=== PATIENT | female | born 1955 | race Caucasian/White ===

== ENCOUNTER 2016-10-13 20:31 | Emergency (ER) | payer MEDICARE, MEDICAID ==
[~2016-10-13] VITALS: Ht 162.6 cm; Wt 113.4 kg
[~2016-10-13 20:31] MED LIST: BENA10TA9 PO; CITA20TA3 PO; GABA-494 PO; LANS30CA63 PO; LEV50T PO; LEVE500T22 PO; LOR05T PO; NOR10T PO; OLAN10TA29 PO; OXC300T PO; OXCA150T3 PO; RIS1T PO; ROSU10TA16 PO
[2016-10-13] MEDS ORDERED: HYDROmorphone HCL 2 MG/ML VL IV ONE (22:00)
[2016-10-13 22:11] LABS: Basophils # (auto) 0.1 uL; Basophils % (auto) 0.8 % (0.0-2.0); CONDITION Y; Eosinophils # (auto) 0.1 uL; Hematocrit 33.5 % (36.0-46.0); Hemoglobin 11.4 g/dL (12.2-16.2); Lymphocytes # (auto) 2.4 uL; Lymphocytes % (auto) 33.7 % (10.0-50.0); Mean Corpuscular Hemoglobin 33.4 pg (28.0-32.0); Mean Corpuscular Hgb Conc. 34.1 g/dL (32.0-36.0); Mean Corpuscular Volume 98.1 fL (80.0-100.0); Mean Platelet Volume 6.1 fL (7.4-10.4); Monocytes # (auto) 0.6 uL; Monocytes % (auto) 7.8 % (0.0-12.0); Neutrophils % (auto) 55.7 % (37.0-80.0); Platelet Count (auto) 179 10^3/uL (140-450); Red Cell Distribution Width 13.1 % (11.6-16.0); White Blood Cell 7.2 10^3/uL (4.4-10.8)
[2016-10-13 22:13] LABS: INR 0.96 (0.9-1.15); Partial Thromboplastin Time 24.4 sec (22.64-33.71); Prothrombin Time 10.5 sec (9.37-12.3)
[2016-10-13] MEDS ORDERED: KETOROLAC TROMETH 30 MG/ML 1ML VIAL IV ONE (22:45)
[2016-10-13] MEDS ORDERED: HYDROcodone-ACET 7.5/325MG TAB PO ONE (22:45)
[2016-10-14 01:17] VITALS: BP 118/62
== END 2016-10-14 02:40 ==
LOC: EDUNIT# 20:31 → EDBD 20:31 → ER 20:36
DX: S32.019A Unspecified fracture of first lumbar vertebra, initial encounter for closed fracture (principal); S80.01XA Contusion of right knee, initial encounter; J45.909 Unspecified asthma, uncomplicated; I10 Essential (primary) hypertension; Z88.6 Allergy status to analgesic agent; Z88.5 Allergy status to narcotic agent; Z88.8 Allergy status to other drugs, medicaments and biological substances; W06.XXXA Fall from bed, initial encounter; Y93.89 Activity, other specified; Y92.89 Other specified places as the place of occurrence of the external cause; Y99.8 Other external cause status; G80.9 Cerebral palsy, unspecified
CPT/HCPCS: 36415; 72100; 73560; 85025; 85610; 85730; 96374; 96375; 99285; J1170; J1885; 93005

== ENCOUNTER 2017-08-22 21:05 | Emergency (ER) | payer MEDICARE, MEDICAID ==
[~2017-08-22] VITALS: Ht 157.5 cm; Wt 90.7 kg
[~2017-08-22 21:05] MED LIST changes: -GABA-494 PO; +GABA100C9 PO; -LANS30CA63 PO; -LOR05T PO; +LORA-654 PO; -NOR10T PO; -OXC300T PO
[2017-08-22 22:05] LABS: Basophils # (auto) 0.1 uL; Basophils % (auto) 1.1 % (0.0-2.0); Eosinophils # (auto) 0.1 uL; Eosinophils % (auto) 1.6 % (0.0-7.0); Hematocrit 34.8 % (36.0-46.0); Hemoglobin 11.8 g/dL (12.2-16.2); Lymphocytes % (auto) 36.8 % (10.0-50.0); Mean Corpuscular Hemoglobin 31.6 pg (28.0-32.0); Monocytes # (auto) 0.4 uL; Monocytes % (auto) 5.2 % (0.0-12.0); Neutrophils # (auto) 4.4 uL; Neutrophils % (auto) 55.3 % (37.0-80.0); Platelet Count (auto) 303 10^3/uL (140-450); Red Blood Cells 3.74 10^6/uL (4.0-5.20); Red Cell Distribution Width 12.9 % (11.8-14.3)
[2017-08-22 22:13] LABS: Alanine Aminotransferase 73 U/L (13-56); Albumin 3.6 g/dL (3.4-5.0); Anion Gap 10 (5-15); Aspartate Aminotransferase 32 U/L (15-37); BUN/Creatinine Ratio 22.1; Blood Urea Nitrogen 15 mg/dL (7-18); Calcium 8.7 mg/dL (8.5-10.1); Carbon Dioxide 25 mmol/L (21-32); Chloride 95 mmol/L (98-107); GFR African American 114 mL/min; GFR Non-African American 94 mL/min; Glucose 120 mg/dL (74-106); Potassium 4.2 mmol/L (3.5-5.1); Sodium 130 mmol/L (136-145)
[2017-08-22 22:18] LABS: Alkaline Phosphatase 107 U/L (45-117); Bilirubin, Total 0.3 mg/dL (0.2-1.0); Total Protein 7.2 g/dL (6.4-8.2)
[2017-08-22] MEDS ORDERED: HYDROcodone-ACET 10/325MG TAB PO ONE (23:15)
[2017-08-22] MEDS ORDERED: LORazepam 2MG/ML-1ML VIAL IM ONE (23:15)
[2017-08-22] MEDS ORDERED: LEVETIRACETAM 500 MG TAB PO ONE (23:15)
[2017-08-23 02:00] VITALS: BP 141/76
== END 2017-08-23 03:24 | disposition home or self-care (01) ==
LOC: EDBD 21:05 → ER 21:09
DX: G40.909 Epilepsy, unspecified, not intractable, without status epilepticus (principal); R42 Dizziness and giddiness; R53.1 Weakness; J45.909 Unspecified asthma, uncomplicated; I10 Essential (primary) hypertension; E07.9 Disorder of thyroid, unspecified; Z90.710 Acquired absence of both cervix and uterus; E66.01 Morbid (severe) obesity due to excess calories; Z68.36 Body mass index [BMI] 36.0-36.9, adult
CPT/HCPCS: 36415; 70450; 71045; 72125; 80053; 84443; 84484; 85025; 93005; 96372; 99285; J2060

== ENCOUNTER 2019-04-09 21:25 | Inpatient (IN) | payer MEDICARE, MEDICAID ==
[~2019-04-09] VITALS: Ht 157.5 cm; Wt 83.9 kg
[~2019-04-09 21:25] MED LIST changes: -LORA-654 PO; +LORA0.5T12 PO
[2019-04-09 22:21] LABS: Basophils # (auto) 0 uL; Basophils % (auto) 0.4 % (0.0-2.0); Eosinophils # (auto) 0.2 uL; Eosinophils % (auto) 2.3 % (0.0-7.0); Hematocrit 36.3 % (36.0-46.0); Hemoglobin 12.6 g/dL (12.2-16.2); Lymphocytes # (auto) 3.6 uL; Lymphocytes % (auto) 37.3 % (10.0-50.0); Mean Corpuscular Hemoglobin 33.3 pg (28.0-32.0); Mean Corpuscular Hgb Conc. 34.8 g/dL (32.0-36.0); Mean Corpuscular Volume 95.9 fL (80.0-100.0); Monocytes # (auto) 0.4 uL; Monocytes % (auto) 3.8 % (0.0-12.0); Neutrophils # (auto) 5.4 uL; Neutrophils % (auto) 56.2 % (37.0-80.0); Platelet Count (auto) 331 10^3/uL (140-450); Red Blood Cells 3.79 10^6/uL (4.0-5.20); Red Cell Distribution Width 12.7 % (11.8-14.3); White Blood Cell 9.7 10^3/uL (4.4-10.8)
[2019-04-09 22:36] LABS: INR 1.05 (0.9-1.15); Partial Thromboplastin Time 27.1 sec (23.64-32.05)
[2019-04-09 22:38] LABS: Albumin 3.8 g/dL (3.4-5.0); Anion Gap 7 (5-15); Blood Urea Nitrogen 13 mg/dL (7-18); Carbon Dioxide 26 mmol/L (21-32); Chloride 103 mmol/L (98-107); Glucose 102 mg/dL (74-106); Magnesium 2.2 mg/dL (1.6-2.6); Potassium 3.9 mmol/L (3.5-5.1); Sodium 136 mmol/L (136-145)
[2019-04-09 22:46] LABS: Alanine Aminotransferase 48 U/L (13-56); Alkaline Phosphatase 129 U/L (45-117); Aspartate Aminotransferase 21 U/L (15-37); BUN/Creatinine Ratio 18.3; Bilirubin, Total 0.4 mg/dL (0.2-1.0); GFR African American 108 mL/min; GFR Non-African American 89 mL/min; Total Protein 7.6 g/dL (6.4-8.2)
[2019-04-10] MEDS ORDERED: MORPHINE SULF INJ 2 MG/ML SYRINGE 1ML IV ONE (01:45)
[2019-04-10] MEDS ORDERED: ONDANSETRON HCL 4 MG/2 ML VIAL IM ONE (01:45)
[2019-04-10] MEDS ORDERED: LORazepam 2MG/ML-1ML VIAL ONE (02:24)
[2019-04-10] MEDS ORDERED: LEVETIRACETAM 500 MG/5ML INJ IV ONE (02:26)
[2019-04-10] MEDS ORDERED: LORazepam 2MG/ML-1ML VIAL IV ONE (02:45)
[2019-04-10] MEDS ORDERED: LEVETIRACETAM INJ 1,000 MG in D5W 5% 100 ML IV ONE (02:45)
[2019-04-10] MEDS ORDERED: TEMAZEPAM 15 MG CAP PO PRN (05:30)
[2019-04-10] MEDS ORDERED: ONDANSETRON HCL 4 MG/2 ML VIAL IV PRN (05:30)
[2019-04-10] MEDS ORDERED: OXcarbazepine 300 MG TAB PO SCH (06:00)
[2019-04-10] MEDS: LEVOTHYROXINE SODIUM 25 MCG TAB PO SCH (08:16)
[2019-04-10] MEDS ORDERED: MORP15TA PO (09:52)
[2019-04-10] MEDS ORDERED: FURO1TAB33 PO (09:52)
[2019-04-10 09:58] VITALS: BP 136/68
[2019-04-10] MEDS ORDERED: LEVETIRACETAM 500 MG TAB PO SCH (10:00)
[2019-04-10] MEDS: FAMOTIDINE 20 MG TAB PO SCH ×2 (10:29→21:55)
[2019-04-10] MEDS: GABAPENTIN 100 MG CAP PO SCH ×2 (10:29→21:55)
[2019-04-10] MEDS: risperiDONE 1 MG TAB PO SCH (10:29)
[2019-04-10] MEDS: ACETAMINOPHEN 325 MG TAB PO PRN (10:31)
[2019-04-10] MEDS: LEVETIRACETAM 500 MG TAB PO SCH ×2 (10:45→21:54)
[2019-04-10] MEDS ORDERED: MORPHINE SULF INJ 2 MG/ML SYRINGE 1ML IV PRN (11:30)
[2019-04-10 17:00] VITALS: BP 104/66
[2019-04-10 20:00] VITALS: BP 119/65
[2019-04-10 22:00] VITALS: BP 119/65
[2019-04-10] MEDS: MORPHINE SULF INJ 2 MG/ML SYRINGE 1ML IV PRN (22:13)
[2019-04-11 05:00] VITALS: BP 132/74
[2019-04-11] MEDS: LEVOTHYROXINE SODIUM 25 MCG TAB PO SCH (06:30)
[2019-04-11 07:42] LABS: Anion Gap 6 (5-15); BUN/Creatinine Ratio 21.4; Blood Urea Nitrogen 15 mg/dL (7-18); Calcium 8.2 mg/dL (8.5-10.1); Carbon Dioxide 25 mmol/L (21-32); Chloride 105 mmol/L (98-107); GFR African American 109 mL/min; GFR Non-African American 90 mL/min; Glucose 109 mg/dL (74-106); Potassium 4.1 mmol/L (3.5-5.1); Sodium 136 mmol/L (136-145)
[2019-04-11 08:00] VITALS: BP 115/62
[2019-04-11] MEDS: MORPHINE SULF INJ 2 MG/ML SYRINGE 1ML IV PRN ×4 (08:42→23:28)
[2019-04-11] MEDS: LEVETIRACETAM 500 MG TAB PO SCH ×2 (10:53→21:31)
[2019-04-11] MEDS: FAMOTIDINE 20 MG TAB PO SCH ×2 (10:53→21:32)
[2019-04-11] MEDS: GABAPENTIN 100 MG CAP PO SCH ×2 (10:53→21:31)
[2019-04-11] MEDS: risperiDONE 1 MG TAB PO SCH (10:53)
[2019-04-11 12:00] VITALS: BP 101/62
[2019-04-11 16:33] LABS: % Iron Saturation 30.2 % (15-50)
[2019-04-11 17:00] VITALS: BP 111/70
[2019-04-11] MEDS: PRAMIPEXOLE DIHYDROCHLORIDE MO 0.25 MG TAB PO SCH (21:31)
[2019-04-11 22:00] VITALS: BP 97/44
[2019-04-11 23:14] VITALS: BP 127/72
[2019-04-12] MEDS: MORPHINE SULF INJ 2 MG/ML SYRINGE 1ML IV PRN ×5 (03:38→23:25)
[2019-04-12 04:26] VITALS: BP 138/78
[2019-04-12] MEDS: LEVOTHYROXINE SODIUM 25 MCG TAB PO SCH (06:20)
[2019-04-12 06:38] LABS: Basophils # (auto) 0 uL; Basophils % (auto) 0.5 % (0.0-2.0); Eosinophils # (auto) 0.2 uL; Eosinophils % (auto) 2.3 % (0.0-7.0); Hemoglobin 12.7 g/dL (12.2-16.2); Lymphocytes # (auto) 2.2 uL; Lymphocytes % (auto) 32.1 % (10.0-50.0); Mean Corpuscular Hemoglobin 33.1 pg (28.0-32.0); Mean Corpuscular Hgb Conc. 33.5 g/dL (32.0-36.0); Mean Corpuscular Volume 98.7 fL (80.0-100.0); Monocytes # (auto) 0.3 uL; Monocytes % (auto) 4.2 % (0.0-12.0); Neutrophils # (auto) 4.2 uL; Neutrophils % (auto) 60.9 % (37.0-80.0); Platelet Count (auto) 251 10^3/uL (140-450); Red Blood Cells 3.85 10^6/uL (4.0-5.20); Red Cell Distribution Width 12.5 % (11.8-14.3); White Blood Cell 6.8 10^3/uL (4.4-10.8)
[2019-04-12 06:54] LABS: Partial Thromboplastin Time 23.7 sec (23.64-32.05)
[2019-04-12 07:00] LABS: Albumin 3.3 g/dL (3.4-5.0); BUN/Creatinine Ratio 23.1; Bilirubin, Total 0.3 mg/dL (0.2-1.0); Calcium 8.6 mg/dL (8.5-10.1); Total Protein 7.1 g/dL (6.4-8.2)
[2019-04-12 09:00] VITALS: BP 99/56
[2019-04-12] MEDS: ENOXAPARIN SOD 40 MG/0.4 ML SYRINGE SC SCH (09:35)
[2019-04-12] MEDS: GABAPENTIN 100 MG CAP PO SCH ×2 (09:36→22:16)
[2019-04-12] MEDS: risperiDONE 1 MG TAB PO SCH (09:36)
[2019-04-12] MEDS: FAMOTIDINE 20 MG TAB PO SCH ×2 (09:36→22:17)
[2019-04-12] MEDS: LEVETIRACETAM 500 MG TAB PO SCH ×2 (09:36→22:16)
[2019-04-12 13:00] VITALS: BP 107/53
[2019-04-12 17:00] VITALS: BP 120/65
[2019-04-12 22:00] VITALS: BP 126/70
[2019-04-12] MEDS: PRAMIPEXOLE DIHYDROCHLORIDE MO 0.25 MG TAB PO SCH (22:16)
[2019-04-13] MEDS: MORPHINE SULF INJ 2 MG/ML SYRINGE 1ML IV PRN ×3 (04:15→13:17)
[2019-04-13 05:00] VITALS: BP 106/59
[2019-04-13 05:46] LABS: Basophils # (auto) 0 uL; Basophils % (auto) 0.6 % (0.0-2.0); Eosinophils # (auto) 0.2 uL; Eosinophils % (auto) 2.4 % (0.0-7.0); Hematocrit 36.5 % (36.0-46.0); Hemoglobin 12.1 g/dL (12.2-16.2); Lymphocytes # (auto) 2.6 uL; Lymphocytes % (auto) 34.5 % (10.0-50.0); Mean Corpuscular Hemoglobin 32.5 pg (28.0-32.0); Mean Corpuscular Hgb Conc. 33.3 g/dL (32.0-36.0); Mean Corpuscular Volume 97.6 fL (80.0-100.0); Monocytes # (auto) 0.3 uL; Monocytes % (auto) 4.3 % (0.0-12.0); Neutrophils # (auto) 4.4 uL; Neutrophils % (auto) 58.2 % (37.0-80.0); Platelet Count (auto) 266 10^3/uL (140-450); Red Blood Cells 3.74 10^6/uL (4.0-5.20); Red Cell Distribution Width 12.5 % (11.8-14.3); White Blood Cell 7.6 10^3/uL (4.4-10.8)
[2019-04-13 06:18] LABS: Potassium 3.8 mmol/L (3.5-5.1)
[2019-04-13 06:25] LABS: Albumin 3.2 g/dL (3.4-5.0); BUN/Creatinine Ratio 17.6; Bilirubin, Total 0.3 mg/dL (0.2-1.0); Calcium 8.8 mg/dL (8.5-10.1); Magnesium 2.4 mg/dL (1.6-2.6); Total Protein 6.8 g/dL (6.4-8.2)
[2019-04-13] MEDS: LEVOTHYROXINE SODIUM 25 MCG TAB PO SCH (06:37)
[2019-04-13 09:00] VITALS: BP 127/70
[2019-04-13] MEDS: ENOXAPARIN SOD 40 MG/0.4 ML SYRINGE SC SCH (09:03)
[2019-04-13] MEDS: FAMOTIDINE 20 MG TAB PO SCH (09:04)
[2019-04-13] MEDS: risperiDONE 1 MG TAB PO SCH (09:04)
[2019-04-13] MEDS: GABAPENTIN 100 MG CAP PO SCH (09:04)
[2019-04-13] MEDS: LEVETIRACETAM 500 MG TAB PO SCH (09:04)
[2019-04-13] MEDS ORDERED: LEVE500T22 PO (11:16)
[2019-04-13] MEDS ORDERED: PRA25T PO (11:16)
[2019-04-13] MEDS: ACETAMINOPHEN 325 MG TAB PO PRN (11:59)
[2019-04-13 13:00] VITALS: BP 107/61
[2019-04-13 14:21] VITALS: BP 107/61
== END 2019-04-13 15:20 | DRG 101 ==
LOC: EDBD 21:25 → EDSEX 21:25 → ER 21:27 → OVERFLOW 21:28 → WEST WING 04-10 09:20
PROVIDERS: ADMIT Nurse Practitioner; ATTEND Internal Medicine Nephrology
DX: G40.409 Other generalized epilepsy and epileptic syndromes, not intractable, without status epilepticus (principal); G31.9 Degenerative disease of nervous system, unspecified; F41.9 Anxiety disorder, unspecified; E66.9 Obesity, unspecified; I10 Essential (primary) hypertension; Z66 Do not resuscitate; G89.29 Other chronic pain; E03.9 Hypothyroidism, unspecified; E78.5 Hyperlipidemia, unspecified; G25.81 Restless legs syndrome; G47.00 Insomnia, unspecified; G80.9 Cerebral palsy, unspecified; J45.909 Unspecified asthma, uncomplicated; K21.9 Gastro-esophageal reflux disease without esophagitis; E83.51 Hypocalcemia; M54.5 Low back pain; Z51.5 Encounter for palliative care; M54.9 Dorsalgia, unspecified; Z79.899 Other long term (current) drug therapy; Z82.49 Family history of ischemic heart disease and other diseases of the circulatory system; Z90.710 Acquired absence of both cervix and uterus; Z68.33 Body mass index [BMI] 33.0-33.9, adult; Z88.8 Allergy status to other drugs, medicaments and biological substances; Z88.6 Allergy status to analgesic agent; Z91.041 Radiographic dye allergy status
CPT/HCPCS: 36415; 70450; 71045; 80048; 80053; 82550; 82728; 83540; 83550; 83735; 84100; 84146; 84484; 85025; 85610; 85730; 87081; 93005; 96365; 96372; 96375; 97163; G0378; J2405; J7060

== ENCOUNTER 2021-07-20 20:42 | Inpatient (IN) | payer MEDICARE, MEDICAID ==
[~2021-07-20] VITALS: Ht 157.5 cm; Wt 96.3 kg
[~2021-07-20 20:42] MED LIST changes: +BENA10TA15 PO; -BENA10TA9 PO; +FURO1TAB33 PO; -GABA100C9 PO; -LEVE500T22 PO; +LEVE500T32 PO; -LORA0.5T12 PO; +MORP15TA PO; -OLAN10TA29 PO; +OLAN1TAB19 PO; +PRAM0.252 PO
[2021-07-20] MEDS ORDERED: MORPHINE SULFATE 4 MG/ML SYR/VIAL IV ONE (22:00)
[2021-07-20 22:26] LABS: Albumin 3.8 g/dL (3.4-5.0); Calcium 9.4 mg/dL (8.5-10.1); Potassium 4.2 mmol/L (3.5-5.1)
[2021-07-20 22:29] LABS: BUN/Creatinine Ratio 19.7; Bilirubin, Total 0.3 mg/dL (0.2-1.0); Total Protein 7.9 g/dL (6.4-8.2)
[2021-07-20] MEDS ORDERED: LORazepam 2MG/ML-1ML VIAL ONE (23:26)
[2021-07-20] MEDS ORDERED: LORazepam 2MG/ML-1ML VIAL IV ONE (23:35)
[2021-07-20 23:55] LABS: Mean Corpuscular Hemoglobin 32.6 pg (28.0-32.0); Mean Corpuscular Hgb Conc. 34.7 g/dL (32.0-36.0)
[2021-07-20 23:58] LABS: Basophils # (auto) 0.1 10 ^3/uL (0-0.2); Basophils % (auto) 0.9 % (0.0-2.0); Eosinophils # (auto) 0.3 10 ^3/uL (0-0.8); Eosinophils % (auto) 3.9 % (0.0-7.0); Hematocrit 36.6 % (36.0-46.0); Hemoglobin 12.7 g/dL (12.2-16.2); Lymphocytes % (auto) 35.4 % (10.0-50.0); Monocytes # (auto) 0.4 10 ^3/uL (0-1.3); Monocytes % (auto) 5.3 % (0.0-12.0); Neutrophils # (auto) 4.6 10 ^3/uL (1.6-8.6); Neutrophils % (auto) 54.5 % (37.0-80.0); Nucleated Red Blood Cells % 0.2 %; Red Blood Cells 3.89 10^6/uL (4.0-5.20); Red Cell Distribution Width 12.5 % (11.8-14.3); White Blood Cell 8.4 10^3/uL (4.4-10.8)
[2021-07-21] MEDS ORDERED: ACETAMINOPHEN 325 MG TAB PO PRN ×2
[2021-07-21] MEDS ORDERED: ONDANSETRON HCL 4 MG/2 ML VIAL IV PRN
[2021-07-21] MEDS ORDERED: TEMAZEPAM 15 MG CAP PO PRN
[2021-07-21] MEDS ORDERED: NITROGLYCERIN 0.4 MG SL TAB SL PRN
[2021-07-21] MEDS ORDERED: MORPHINE SULFATE INJ 2 MG/ml SYRG IV PRN
[2021-07-21] MEDS ORDERED: DOCUSATE SOD 100 MG CAP PO PRN
[2021-07-21] MEDS: SODIUM CHLORIDE 0.9% 1,000 ML IV SCH ×3 (00:28→16:40)
[2021-07-21] MEDS ORDERED: levETIRAcetam 500 MG/5ML INJ IV ONE (00:53)
[2021-07-21 07:05] LABS: Basophils # (auto) 0 10 ^3/uL (0-0.2); Basophils % (auto) 0.8 % (0.0-2.0); Eosinophils # (auto) 0.3 10 ^3/uL (0-0.8); Eosinophils % (auto) 3.9 % (0.0-7.0); Hemoglobin 12.5 g/dL (12.2-16.2); Lymphocytes # (auto) 2.3 10 ^3/uL (0.4-5.4); Lymphocytes % (auto) 35.8 % (10.0-50.0); Mean Corpuscular Hemoglobin 33.4 pg (28.0-32.0); Mean Corpuscular Hgb Conc. 34.8 g/dL (32.0-36.0); Mean Corpuscular Volume 96.2 fL (80.0-100.0); Monocytes # (auto) 0.3 10 ^3/uL (0-1.3); Neutrophils # (auto) 3.5 10 ^3/uL (1.6-8.6); Neutrophils % (auto) 54.5 % (37.0-80.0); Nucleated Red Blood Cells % 0.1 %; Red Blood Cells 3.74 10^6/uL (4.0-5.20); Red Cell Distribution Width 12.8 % (11.8-14.3); White Blood Cell 6.5 10^3/uL (4.4-10.8)
[2021-07-21] MEDS: MORPHINE SULFATE INJ 2 MG/ml SYRG IV PRN ×4 (07:07→22:07)
[2021-07-21 07:21] LABS: Albumin 3.5 g/dL (3.4-5.0); Calcium 8.6 mg/dL (8.5-10.1); Potassium 3.8 mmol/L (3.5-5.1)
[2021-07-21 07:25] LABS: Bilirubin, Total 0.4 mg/dL (0.2-1.0); Total Protein 7.1 g/dL (6.4-8.2)
[2021-07-21 09:00] VITALS: BP 135/60
[2021-07-21] MEDS: ZINC SULFATE 220mg CAP or TAB PO SCH (10:50)
[2021-07-21] MEDS: MULTIPLE VITAMIN TAB PO SCH (10:50)
[2021-07-21] MEDS: ASCORBIC ACID 500 MG TAB PO SCH ×3 (10:51→21:46)
[2021-07-21] MEDS ORDERED: ARIP2TAB PO (12:00)
[2021-07-21] MEDS ORDERED: ASCO500T11 PO (12:00)
[2021-07-21] MEDS ORDERED: FER325T PO (12:00)
[2021-07-21] MEDS ORDERED: METF-370 PO (12:00)
[2021-07-21] MEDS ORDERED: AML5T PO (12:00)
[2021-07-21] MEDS ORDERED: MIRA25TA PO (12:00)
[2021-07-21] MEDS ORDERED: CHOL100079 PO (12:00)
[2021-07-21] MEDS ORDERED: POTA-180 PO (12:00)
[2021-07-21] MEDS ORDERED: ISOS1TAB28 PO (12:00)
[2021-07-21] MEDS ORDERED: LACO100T PO (12:00)
[2021-07-21] MEDS ORDERED: PANT40TA2 PO (12:00)
[2021-07-21] MEDS: ENOXAPARIN SOD 40 MG/0.4 ML SYRINGE SC SCH (14:45)
[2021-07-21] MEDS: LORazepam 2MG/ML-1ML VIAL IV PRN (16:03)
[2021-07-21 16:34] VITALS: BP 124/58
[2021-07-21] MEDS: FERROUS SULFATE 325mg EC TAB PO SCH (21:44)
[2021-07-21] MEDS: PRAMIPEXOLE DIHYDROCHLORIDE MO 0.25 MG TAB PO SCH (21:44)
[2021-07-21] MEDS: risperiDONE 1 MG TAB PO SCH (21:45)
[2021-07-21 22:00] VITALS: BP 134/69
[2021-07-22] MEDS: SODIUM CHLORIDE 0.9% 1,000 ML IV SCH ×4 (01:02→17:40)
[2021-07-22] MEDS: MORPHINE SULFATE INJ 2 MG/ml SYRG IV PRN ×4 (04:06→22:09)
[2021-07-22 05:00] VITALS: BP 156/77
[2021-07-22] MEDS: LEVOTHYROXINE SODIUM 50 MCG TAB PO SCH (07:42)
[2021-07-22] MEDS: ASCORBIC ACID 500 MG TAB PO SCH ×4 (10:00→21:51)
[2021-07-22] MEDS: FERROUS SULFATE 325mg EC TAB PO SCH ×2 (10:12→21:51)
[2021-07-22] MEDS: ZINC SULFATE 220mg CAP or TAB PO SCH (10:13)
[2021-07-22] MEDS: MULTIPLE VITAMIN TAB PO SCH (10:13)
[2021-07-22] MEDS: CITALOPRAM HYDROBR 20 MG TAB PO SCH (10:14)
[2021-07-22] MEDS: FUROSEMIDE 20 MG TAB PO SCH (10:14)
[2021-07-22] MEDS: BENAZEPRIL HCL 10 MG TAB PO SCH (10:15)
[2021-07-22] MEDS: risperiDONE 1 MG TAB PO SCH ×2 (10:16→21:51)
[2021-07-22] MEDS: PANTOPRAZOLE 40 MG TAB PO SCH (10:16)
[2021-07-22] MEDS: amLODIPine BESYLATE 5 MG TAB PO SCH (10:16)
[2021-07-22] MEDS: ENOXAPARIN SOD 40 MG/0.4 ML SYRINGE SC SCH (10:17)
[2021-07-22 12:30] VITALS: BP 137/66
[2021-07-22 12:54] LABS: Urine Bacteria FEW /hpf (None Seen); Urine Blood Negative /uL (Negative); Urine Specific Gravity 1.009 (1.001-1.035); Urine WBC 1 /hpf (0 - 5)
[2021-07-22 14:00] VITALS: BP 111/52
[2021-07-22] MEDS: LORazepam 2MG/ML-1ML VIAL IV PRN (17:22)
[2021-07-22] MEDS ORDERED: LORazepam 2MG/ML-1ML VIAL IV PRN (21:15)
[2021-07-22] MEDS: PRAMIPEXOLE DIHYDROCHLORIDE MO 0.25 MG TAB PO SCH (21:51)
[2021-07-22 22:00] VITALS: BP 132/55
[2021-07-23] MEDS: MORPHINE SULFATE INJ 2 MG/ml SYRG IV PRN ×4 (02:50→21:52)
[2021-07-23 05:03] VITALS: BP 111/50
[2021-07-23] MEDS: LEVOTHYROXINE SODIUM 50 MCG TAB PO SCH (06:28)
[2021-07-23] MEDS: ENOXAPARIN SOD 40 MG/0.4 ML SYRINGE SC SCH (08:38)
[2021-07-23] MEDS: FERROUS SULFATE 325mg EC TAB PO SCH ×2 (08:38→21:50)
[2021-07-23] MEDS: MULTIPLE VITAMIN TAB PO SCH (08:39)
[2021-07-23] MEDS: PANTOPRAZOLE 40 MG TAB PO SCH (08:39)
[2021-07-23] MEDS: BENAZEPRIL HCL 10 MG TAB PO SCH (08:39)
[2021-07-23] MEDS: CITALOPRAM HYDROBR 20 MG TAB PO SCH (08:39)
[2021-07-23] MEDS: ASCORBIC ACID 500 MG TAB PO SCH ×2 (08:39→21:51)
[2021-07-23] MEDS: risperiDONE 1 MG TAB PO SCH ×2 (08:40→21:51)
[2021-07-23] MEDS: amLODIPine BESYLATE 5 MG TAB PO SCH (08:45)
[2021-07-23] MEDS: FUROSEMIDE 20 MG TAB PO SCH (10:06)
[2021-07-23] MEDS: ZINC SULFATE 220mg CAP or TAB PO SCH (10:06)
[2021-07-23] MEDS: SODIUM CHLORIDE 0.9% 1,000 ML IV SCH (17:38)
[2021-07-23 21:51] VITALS: BP 129/60
[2021-07-23] MEDS: PRAMIPEXOLE DIHYDROCHLORIDE MO 0.25 MG TAB PO SCH (21:51)
[2021-07-24] MEDS: SODIUM CHLORIDE 0.9% 1,000 ML IV SCH ×3 (03:00→21:44)
[2021-07-24] MEDS: MORPHINE SULFATE INJ 2 MG/ml SYRG IV PRN ×3 (04:38→20:19)
[2021-07-24 04:44] VITALS: BP 130/70
[2021-07-24] MEDS: LEVOTHYROXINE SODIUM 50 MCG TAB PO SCH (06:18)
[2021-07-24 08:00] VITALS: BP 130/64
[2021-07-24] MEDS: ASCORBIC ACID 500 MG TAB PO SCH ×2 (10:19→23:13)
[2021-07-24] MEDS: ZINC SULFATE 220mg CAP or TAB PO SCH (10:23)
[2021-07-24] MEDS: CITALOPRAM HYDROBR 20 MG TAB PO SCH (10:23)
[2021-07-24] MEDS: FERROUS SULFATE 325mg EC TAB PO SCH ×2 (10:23→21:45)
[2021-07-24] MEDS: FUROSEMIDE 20 MG TAB PO SCH (10:23)
[2021-07-24] MEDS: MULTIPLE VITAMIN TAB PO SCH (10:24)
[2021-07-24] MEDS: amLODIPine BESYLATE 5 MG TAB PO SCH (10:24)
[2021-07-24] MEDS: risperiDONE 1 MG TAB PO SCH ×2 (10:24→21:45)
[2021-07-24] MEDS: PANTOPRAZOLE 40 MG TAB PO SCH (10:24)
[2021-07-24] MEDS: BENAZEPRIL HCL 10 MG TAB PO SCH (10:25)
[2021-07-24] MEDS: ENOXAPARIN SOD 40 MG/0.4 ML SYRINGE SC SCH (10:25)
[2021-07-24 13:00] VITALS: BP 122/67
[2021-07-24 17:38] VITALS: BP 104/61
[2021-07-24] MEDS: PRAMIPEXOLE DIHYDROCHLORIDE MO 0.25 MG TAB PO SCH (21:45)
[2021-07-24 22:00] VITALS: BP 124/68
[2021-07-25 05:00] VITALS: BP 118/74
[2021-07-25] MEDS: SODIUM CHLORIDE 0.9% 1,000 ML IV SCH ×3 (05:03→20:26)
[2021-07-25] MEDS: MORPHINE SULFATE INJ 2 MG/ml SYRG IV PRN ×4 (05:27→20:27)
[2021-07-25] MEDS: LEVOTHYROXINE SODIUM 50 MCG TAB PO SCH (06:22)
[2021-07-25] MEDS: CITALOPRAM HYDROBR 20 MG TAB PO SCH (09:49)
[2021-07-25] MEDS: ZINC SULFATE 220mg CAP or TAB PO SCH (09:49)
[2021-07-25] MEDS: FERROUS SULFATE 325mg EC TAB PO SCH ×2 (09:49→22:18)
[2021-07-25] MEDS: BENAZEPRIL HCL 10 MG TAB PO SCH (09:51)
[2021-07-25] MEDS: MULTIPLE VITAMIN TAB PO SCH (09:51)
[2021-07-25] MEDS: FUROSEMIDE 20 MG TAB PO SCH (09:51)
[2021-07-25] MEDS: amLODIPine BESYLATE 5 MG TAB PO SCH (09:52)
[2021-07-25] MEDS: ASCORBIC ACID 500 MG TAB PO SCH ×2 (09:52→22:18)
[2021-07-25] MEDS: ENOXAPARIN SOD 40 MG/0.4 ML SYRINGE SC SCH (09:52)
[2021-07-25] MEDS: risperiDONE 1 MG TAB PO SCH ×2 (09:52→22:18)
[2021-07-25] MEDS: PANTOPRAZOLE 40 MG TAB PO SCH (09:52)
[2021-07-25 13:00] VITALS: BP 123/63
[2021-07-25] MEDS: PRAMIPEXOLE DIHYDROCHLORIDE MO 0.25 MG TAB PO SCH (22:18)
[2021-07-25 23:11] VITALS: BP 134/69
[2021-07-26 04:59] VITALS: BP 129/68
[2021-07-26] MEDS: LEVOTHYROXINE SODIUM 50 MCG TAB PO SCH (06:42)
[2021-07-26 09:08] VITALS: BP 118/66
[2021-07-26] MEDS: amLODIPine BESYLATE 5 MG TAB PO SCH (09:09)
[2021-07-26] MEDS: ZINC SULFATE 220mg CAP or TAB PO SCH (09:10)
[2021-07-26] MEDS: BENAZEPRIL HCL 10 MG TAB PO SCH (09:10)
[2021-07-26] MEDS: ASCORBIC ACID 500 MG TAB PO SCH (09:10)
[2021-07-26] MEDS: MULTIPLE VITAMIN TAB PO SCH (09:10)
[2021-07-26] MEDS: FUROSEMIDE 20 MG TAB PO SCH (09:11)
[2021-07-26] MEDS: FERROUS SULFATE 325mg EC TAB PO SCH (09:11)
[2021-07-26] MEDS: CITALOPRAM HYDROBR 20 MG TAB PO SCH (09:11)
[2021-07-26] MEDS: ENOXAPARIN SOD 40 MG/0.4 ML SYRINGE SC SCH (09:12)
[2021-07-26] MEDS: risperiDONE 1 MG TAB PO SCH (09:12)
[2021-07-26] MEDS: PANTOPRAZOLE 40 MG TAB PO SCH (09:12)
[2021-07-26 13:00] VITALS: BP 117/58
[2021-07-26 13:53] VITALS: BP 118/66
== END 2021-07-26 16:48 | DRG 101 ==
LOC: ER 20:42 → EDBD 20:42 → TELE 23:55 → TELE-WESTW 07-21 08:23
PROVIDERS: ADMIT Internal Medicine; ATTEND Internal Medicine
PROC: 05HC33Z Insertion of Infusion Device into Left Basilic Vein, Percutaneous Approach (ICD-10-PCS; principal; 2021-07-24)
PROC: B54NZZA Ultrasonography of Left Upper Extremity Veins, Guidance (ICD-10-PCS; 2021-07-24)
DX: G40.409 Other generalized epilepsy and epileptic syndromes, not intractable, without status epilepticus (principal); E61.1 Iron deficiency; G80.9 Cerebral palsy, unspecified; J45.909 Unspecified asthma, uncomplicated; G25.81 Restless legs syndrome; E66.9 Obesity, unspecified; E78.5 Hyperlipidemia, unspecified; G47.00 Insomnia, unspecified; I10 Essential (primary) hypertension; F41.9 Anxiety disorder, unspecified; Z66 Do not resuscitate; K21.9 Gastro-esophageal reflux disease without esophagitis; R41.3 Other amnesia; Z20.822 Contact with and (suspected) exposure to COVID-19; E03.9 Hypothyroidism, unspecified; Z82.49 Family history of ischemic heart disease and other diseases of the circulatory system; Z88.5 Allergy status to narcotic agent; Z88.8 Allergy status to other drugs, medicaments and biological substances; Z88.6 Allergy status to analgesic agent; Z91.041 Radiographic dye allergy status; Z90.710 Acquired absence of both cervix and uterus; Z79.899 Other long term (current) drug therapy
CPT/HCPCS: 36415; 70450; 70551; 80053; 81001; 82962; 85025; 93005; 95819; 96365; 96375; 97163; G0378; J2405; J7060

== ENCOUNTER 2022-01-27 16:18 | Inpatient (IN) | payer MEDICARE, MEDICAID ==
[~2022-01-27] VITALS: Ht 154.9 cm; Wt 84.5 kg
[~2022-01-27 16:18] MED LIST changes: +AML5T PO; +ARIP2TAB PO; +ASCO500T11 PO; +CHOL100079 PO; +FER325T PO; +ISOS1TAB28 PO; +LACO100T PO; +METF-370 PO; +MIRA25TA PO; +PANT40TA2 PO; +POTA-180 PO
[2022-01-27] MEDS ORDERED: LORazepam 2MG/ML-1ML VIAL ONE (16:25)
[2022-01-27] MEDS ORDERED: LORazepam 2MG/ML-1ML VIAL IM ONE (16:30)
[2022-01-27] MEDS ORDERED: LIDOCAINE 1%HCL (LOCAL ANESTH) 10 ML MDV ONE (19:34)
[2022-01-27] MEDS ORDERED: LIDOCAINE 1% HCL (LOCAL ANESTH.) INJ 20ML MDV ID ONE (19:45)
[2022-01-27] MEDS ORDERED: HYDROmorphone HCL 2 MG/ML VL/or syr IV ONE (21:15)
[2022-01-27] MEDS ORDERED: LIDOCAINE VISCOUS 2% 15ML UD MT ONE (22:00)
[2022-01-28] MEDS ORDERED: LORazepam 2MG/ML-1ML VIAL IV ONE
[2022-01-28 00:07] LABS: Albumin 3.4 g/dL (3.4-5.0); Calcium 8.7 mg/dL (8.5-10.1); Potassium 3.9 mmol/L (3.5-5.1)
[2022-01-28 00:11] LABS: BUN/Creatinine Ratio 17.4; Bilirubin, Total 0.4 mg/dL (0.2-1.0); Total Protein 6.9 g/dL (6.4-8.2)
[2022-01-28] MEDS ORDERED: ACETAMINOPHEN 325 MG TAB PO PRN (00:15)
[2022-01-28] MEDS ORDERED: DEXTROSE (50%) 50ML SYRG IV PRN (00:15)
[2022-01-28] MEDS ORDERED: ONDANSETRON HCL 4 MG/2 ML VIAL IV PRN (00:15)
[2022-01-28] MEDS ORDERED: NITROGLYCERIN 0.4 MG SL TAB SL PRN (00:15)
[2022-01-28] MEDS ORDERED: DOCUSATE SOD 100 MG CAP PO PRN (00:15)
[2022-01-28] MEDS ORDERED: LORazepam 2MG/ML-1ML VIAL IV PRN ×2 (00:15→19:00)
[2022-01-28 01:42] LABS: Urine Bacteria FEW /hpf (None Seen); Urine Blood Negative /uL (Negative); Urine Specific Gravity 1.012 (1.001-1.035); Urine WBC 13 /hpf (0 - 5)
[2022-01-28] MEDS ORDERED: cefTRIAXone 1GM/50ML D5W 50 ML IV ONE (02:30)
[2022-01-28] MEDS ORDERED: HYDROmorphone HCL 2 MG/ML VL/or syr IV ONE (03:30)
[2022-01-28 04:50] LABS: Basophils # (auto) 0.1 10 ^3/uL (0-0.2); Eosinophils # (auto) 0.2 10 ^3/uL (0-0.8); Hematocrit 40.7 % (36.0-46.0); Hemoglobin 13.6 g/dL (12.2-16.2); Mean Corpuscular Hemoglobin 31.9 pg (28.0-32.0); Monocytes # (auto) 0.6 10 ^3/uL (0-1.3); White Blood Cell 9.8 10^3/uL (4.4-10.8)
[2022-01-28 04:52] LABS: Lymphocytes # (auto) 2.9 10 ^3/uL (0.4-5.4); Lymphocytes % (auto) 29.4 % (10.0-50.0); Mean Corpuscular Hgb Conc. 33.4 g/dL (32.0-36.0); Mean Corpuscular Volume 95.5 fL (80.0-100.0); Monocytes % (auto) 6.3 % (0.0-12.0); Neutrophils % (auto) 61.3 % (37.0-80.0); Nucleated Red Blood Cells % 0.1 %; Red Blood Cells 4.27 10^6/uL (4.0-5.20); Red Cell Distribution Width 12.2 % (11.8-14.3)
[2022-01-28 05:26] LABS: Albumin 3.6 g/dL (3.4-5.0); Calcium 8.8 mg/dL (8.5-10.1); Potassium 3.7 mmol/L (3.5-5.1)
[2022-01-28 05:31] LABS: Bilirubin, Total 0.4 mg/dL (0.2-1.0); Total Protein 7.3 g/dL (6.4-8.2)
[2022-01-28] MEDS: ACCU-CHEK COMFORT CURVE STRIP VI SCH ×3 (06:00→17:46)
[2022-01-28] MEDS: InsuLIN REG 1unit/0.01ml Soln (100units/ml) SC SCH ×3 (06:00→17:46)
[2022-01-28] MEDS: SODIUM CHLOR 0.9% PF (SALINE LOCK) 10ML VIAL/SYR IV SCH ×3 (06:00→21:58)
[2022-01-28] MEDS: cefTRIAXone 1GM/50ML D5W 50 ML IV SCH (09:21)
[2022-01-28] MEDS: MORPHINE SULFATE INJ 2 MG/ml SYRG IV PRN ×3 (09:40→21:57)
[2022-01-28] MEDS: levETIRAcetam INJ 1,250 MG in D5W 5% 100 ML IV SCH ×2 (19:00→21:55)
[2022-01-28] MEDS ORDERED: TRAZ-181 PO (20:57)
[2022-01-28] MEDS: traZODone HCL 50 MG TAB PO SCH (22:47)
[2022-01-29] MEDS: ACCU-CHEK COMFORT CURVE STRIP VI SCH ×4 (00:17→17:08)
[2022-01-29] MEDS: InsuLIN REG 1unit/0.01ml Soln (100units/ml) SC SCH ×4 (05:51→17:35)
[2022-01-29] MEDS: SODIUM CHLOR 0.9% PF (SALINE LOCK) 10ML VIAL/SYR IV SCH ×3 (05:51→21:41)
[2022-01-29 06:41] LABS: Basophils # (auto) 0.1 10 ^3/uL (0-0.2); Basophils % (auto) 0.6 % (0.0-2.0); Eosinophils # (auto) 0.2 10 ^3/uL (0-0.8); Eosinophils % (auto) 1.9 % (0.0-7.0); Hematocrit 42.6 % (36.0-46.0); Hemoglobin 14.1 g/dL (12.2-16.2); Lymphocytes # (auto) 2.3 10 ^3/uL (0.4-5.4); Lymphocytes % (auto) 25.1 % (10.0-50.0); Mean Corpuscular Hemoglobin 31.2 pg (28.0-32.0); Mean Corpuscular Hgb Conc. 33.1 g/dL (32.0-36.0); Mean Corpuscular Volume 94.1 fL (80.0-100.0); Monocytes # (auto) 0.5 10 ^3/uL (0-1.3); Monocytes % (auto) 5.1 % (0.0-12.0); Neutrophils # (auto) 6.2 10 ^3/uL (1.6-8.6); Neutrophils % (auto) 67.3 % (37.0-80.0); Nucleated Red Blood Cells % 0.1 %; Red Blood Cells 4.52 10^6/uL (4.0-5.20); White Blood Cell 9.2 10^3/uL (4.4-10.8)
[2022-01-29 06:59] LABS: Calcium 9.4 mg/dL (8.5-10.1); Potassium 4.2 mmol/L (3.5-5.1)
[2022-01-29 07:05] LABS: BUN/Creatinine Ratio 20.3; Bilirubin, Total 0.6 mg/dL (0.2-1.0); Total Protein 7.3 g/dL (6.4-8.2)
[2022-01-29] MEDS: MORPHINE SULFATE INJ 2 MG/ml SYRG IV PRN ×4 (07:09→23:10)
[2022-01-29 09:00] VITALS: BP 114/68
[2022-01-29] MEDS: PANTOPRAZOLE 40 MG/10 ML VIAL INJ IV SCH (09:25)
[2022-01-29] MEDS: cefTRIAXone 1GM/50ML D5W 50 ML IV SCH (09:26)
[2022-01-29] MEDS ORDERED: ENOXAPARIN SOD 40 MG/0.4 ML SYRINGE SC SCH (10:00)
[2022-01-29] MEDS: levETIRAcetam INJ 1,250 MG in D5W 5% 100 ML IV SCH ×2 (10:57→23:11)
[2022-01-29 13:00] VITALS: BP 104/60
[2022-01-29 17:00] VITALS: BP 147/68
[2022-01-29] MEDS: traZODone HCL 50 MG TAB PO SCH (21:40)
[2022-01-29 21:51] VITALS: BP 112/63
[2022-01-30] MEDS: ACCU-CHEK COMFORT CURVE STRIP VI SCH ×5 (00:52→23:46)
[2022-01-30] MEDS: InsuLIN REG 1unit/0.01ml Soln (100units/ml) SC SCH ×5 (00:52→23:46)
[2022-01-30] MEDS: MORPHINE SULFATE INJ 2 MG/ml SYRG IV PRN ×4 (04:54→20:36)
[2022-01-30] MEDS: SODIUM CHLOR 0.9% PF (SALINE LOCK) 10ML VIAL/SYR IV SCH ×3 (04:55→22:07)
[2022-01-30 05:00] VITALS: BP 127/65
[2022-01-30 09:00] VITALS: BP 109/64
[2022-01-30] MEDS: cefTRIAXone 1GM/50ML D5W 50 ML IV SCH (09:40)
[2022-01-30] MEDS: PANTOPRAZOLE 40 MG/10 ML VIAL INJ IV SCH (09:41)
[2022-01-30] MEDS: levETIRAcetam INJ 1,250 MG in D5W 5% 100 ML IV SCH ×2 (10:45→22:07)
[2022-01-30 12:54] VITALS: BP 137/61
[2022-01-30 17:00] VITALS: BP 141/67
[2022-01-30 22:00] VITALS: BP 122/59
[2022-01-30] MEDS: traZODone HCL 50 MG TAB PO SCH (22:06)
[2022-01-31] MEDS: MORPHINE SULFATE INJ 2 MG/ml SYRG IV PRN ×3 (02:15→15:14)
[2022-01-31 05:16] VITALS: BP 146/58
[2022-01-31] MEDS: ACCU-CHEK COMFORT CURVE STRIP VI SCH ×2 (05:25→11:33)
[2022-01-31] MEDS: SODIUM CHLOR 0.9% PF (SALINE LOCK) 10ML VIAL/SYR IV SCH ×2 (05:25→14:24)
[2022-01-31] MEDS: InsuLIN REG 1unit/0.01ml Soln (100units/ml) SC SCH ×2 (05:27→11:34)
[2022-01-31 09:00] VITALS: BP 126/66
[2022-01-31] MEDS: PANTOPRAZOLE 40 MG/10 ML VIAL INJ IV SCH (10:02)
[2022-01-31] MEDS: cefTRIAXone 1GM/50ML D5W 50 ML IV SCH (10:02)
[2022-01-31] MEDS: levETIRAcetam INJ 1,250 MG in D5W 5% 100 ML IV SCH (11:32)
[2022-01-31 13:00] VITALS: BP 107/53
[2022-01-31] MEDS ORDERED: CIPR-173 PO ×2 (14:10→14:12)
[2022-01-31 15:14] VITALS: BP 115/75
== END 2022-01-31 17:00 | DRG 101 ==
LOC: EDBD 16:18 → ER 16:21 → TELE 01-28 00:13 → TELE-WESTW 01-29 08:11
PROVIDERS: ADMIT Nurse Practitioner Family; ATTEND Internal Medicine
DX: G40.401 Other generalized epilepsy and epileptic syndromes, not intractable, with status epilepticus (principal); N30.00 Acute cystitis without hematuria; F03.90 Unspecified dementia, unspecified severity, without behavioral disturbance, psychotic disturbance, mood disturbance, and anxiety; E03.9 Hypothyroidism, unspecified; G80.9 Cerebral palsy, unspecified; Z20.822 Contact with and (suspected) exposure to COVID-19; E11.9 Type 2 diabetes mellitus without complications; F41.9 Anxiety disorder, unspecified; E66.9 Obesity, unspecified; E78.5 Hyperlipidemia, unspecified; Z68.35 Body mass index [BMI] 35.0-35.9, adult; I10 Essential (primary) hypertension; G25.81 Restless legs syndrome; J45.909 Unspecified asthma, uncomplicated; W05.0XXA Fall from non-moving wheelchair, initial encounter; Y93.89 Activity, other specified; Y92.098 Other place in other non-institutional residence as the place of occurrence of the external cause; Y99.8 Other external cause status; Z82.49 Family history of ischemic heart disease and other diseases of the circulatory system; Z88.6 Allergy status to analgesic agent; Z88.8 Allergy status to other drugs, medicaments and biological substances; Z90.710 Acquired absence of both cervix and uterus; Z99.3 Dependence on wheelchair
CPT/HCPCS: 36415; 36556; 70450; 71045; 72125; 80053; 81001; 82542; 82962; 84443; 84702; 85025; 87086; 87088; 87186; 87426; 95819; 96365; 96372; 96375; C9113; G0378; J0696; J1815; J2001; J7060

== ENCOUNTER 2022-07-15 14:11 | Inpatient (IN) | payer MEDICARE, MEDICAID ==
[~2022-07-15] VITALS: Ht 165.1 cm; Wt 89.7 kg
[~2022-07-15 14:11] MED LIST changes: +CIPR-173 PO; +TRAZ-181 PO
[2022-07-15] MEDS ORDERED: LORazepam 2MG/ML-1ML VIAL ONE (14:20)
[2022-07-15] MEDS ORDERED: LORazepam 2MG/ML-1ML VIAL IV ONE ×2 (14:30→15:00)
[2022-07-15 16:24] LABS: Albumin 3.5 g/dL (3.4-5.0); Calcium 8.3 mg/dL (8.5-10.1); Magnesium 2.1 mg/dL (1.6-2.6)
[2022-07-15 16:28] LABS: Bilirubin, Total 0.4 mg/dL (0.2-1.0); Total Protein 6.9 g/dL (6.4-8.2)
[2022-07-15 17:30] LABS: Basophils # (auto) 0 10 ^3/uL (0-0.2); Basophils % (auto) 0.6 % (0.0-2.0); Eosinophils # (auto) 0.1 10 ^3/uL (0-0.8); Hematocrit 37.2 % (36.0-46.0); Hemoglobin 12.7 g/dL (12.2-16.2); Lymphocytes % (auto) 28.7 % (10.0-50.0); Mean Corpuscular Hemoglobin 32.4 pg (28.0-32.0); Mean Corpuscular Volume 95.1 fL (80.0-100.0); Monocytes # (auto) 0.3 10 ^3/uL (0-1.3); Monocytes % (auto) 4.4 % (0.0-12.0); Neutrophils # (auto) 4.4 10 ^3/uL (1.6-8.6); Neutrophils % (auto) 64.3 % (37.0-80.0); Nucleated Red Blood Cells % 0.1 %; Red Blood Cells 3.91 10^6/uL (4.0-5.20); Red Cell Distribution Width 12.6 % (11.8-14.3); White Blood Cell 6.9 10^3/uL (4.4-10.8)
[2022-07-15] MEDS ORDERED: MORPHINE SULFATE INJ 2 MG/ml SYRG IV PRN (17:30)
[2022-07-15] MEDS ORDERED: NITROGLYCERIN 0.4 MG SL TAB SL PRN (17:30)
[2022-07-15] MEDS ORDERED: DEXTROSE (50%) 50ML SYRG IV PRN (19:00)
[2022-07-15] MEDS: ACCU-CHEK COMFORT CURVE STRIP VI SCH (21:55)
[2022-07-15] MEDS: InsuLIN REG 1unit/0.01ml Soln (100units/ml) SC SCH (22:56)
[2022-07-15] MEDS: FERROUS SULFATE 325mg EC TAB PO SCH (23:15)
[2022-07-15] MEDS: ASCORBIC ACID 500 MG TAB PO SCH (23:15)
[2022-07-16] MEDS: LORazepam 2MG/ML-1ML VIAL IV PRN (01:29)
[2022-07-16] MEDS ORDERED: LORazepam 2MG/ML-1ML VIAL IV PRN (04:45)
[2022-07-16] MEDS: ONDANSETRON HCL 4 MG/2 ML VIAL IV PRN ×2 (05:05→14:39)
[2022-07-16] MEDS: MORPHINE SULFATE 4 MG/ML SYR/VIAL IV PRN ×4 (05:05→20:23)
[2022-07-16] MEDS: InsuLIN REG 1unit/0.01ml Soln (100units/ml) SC SCH ×4 (07:00→22:00)
[2022-07-16] MEDS ORDERED: HYDROcodone-ACET 5/325MG TAB PO PRN (07:00)
[2022-07-16] MEDS: ACCU-CHEK COMFORT CURVE STRIP VI SCH ×4 (07:17→22:08)
[2022-07-16] MEDS: LEVOTHYROXINE SODIUM 25 MCG TAB PO SCH (07:27)
[2022-07-16 07:36] LABS: Urine Bacteria NONE SEEN /hpf (None Seen); Urine Blood Negative /uL (Negative); Urine Mucus FEW (None Seen); Urine Specific Gravity 1.015 (1.001-1.035); Urine WBC 2 /hpf (0 - 5)
[2022-07-16 07:51] LABS: Basophils # (auto) 0.1 10 ^3/uL (0-0.2); Basophils % (auto) 0.9 % (0.0-2.0); Eosinophils # (auto) 0.2 10 ^3/uL (0-0.8); Eosinophils % (auto) 2.3 % (0.0-7.0); Hematocrit 39.2 % (36.0-46.0); Hemoglobin 13.3 g/dL (12.2-16.2); Lymphocytes # (auto) 2.5 10 ^3/uL (0.4-5.4); Lymphocytes % (auto) 34.5 % (10.0-50.0); Mean Corpuscular Hemoglobin 32.1 pg (28.0-32.0); Mean Corpuscular Volume 94.4 fL (80.0-100.0); Monocytes # (auto) 0.4 10 ^3/uL (0-1.3); Neutrophils % (auto) 56.3 % (37.0-80.0); Nucleated Red Blood Cells % 0.2 %; Red Blood Cells 4.15 10^6/uL (4.0-5.20); White Blood Cell 7.2 10^3/uL (4.4-10.8)
[2022-07-16 09:03] LABS: Potassium 3.8 mmol/L (3.5-5.1)
[2022-07-16 09:08] LABS: Albumin 3.6 g/dL (3.4-5.0); BUN/Creatinine Ratio 15.5 (10.0-20.0); Calcium 8.9 mg/dL (8.5-10.1)
[2022-07-16 09:10] LABS: Bilirubin, Total 0.4 mg/dL (0.2-1.0); Total Protein 7.3 g/dL (6.4-8.2)
[2022-07-16 09:13] LABS: Alcohol, Urine < 3.0 mg/dL (0-10); Amphetamine Screen, Urine NEGATIVE (NEGATIVE); Barbiturate Scree,Urine NEGATIVE (NEGATIVE); Benzodiazephine Screen, Urine NEGATIVE (NEGATIVE); Cannabinoid Screen, Urine NEGATIVE (NEGATIVE); Cocaine Screen, Urine NEGATIVE (NEGATIVE)
[2022-07-16 09:21] LABS: Opiate Scree,Urine POSITIVE (NEGATIVE); Phencyclidine Screen, Urine NEGATIVE (NEGATIVE)
[2022-07-16] MEDS: FUROSEMIDE 20 MG TAB PO SCH (09:59)
[2022-07-16] MEDS: ASCORBIC ACID 500 MG TAB PO SCH ×2 (09:59→22:05)
[2022-07-16] MEDS: FERROUS SULFATE 325mg EC TAB PO SCH ×2 (09:59→22:05)
[2022-07-16] MEDS: amLODIPine BESYLATE 5 MG TAB PO SCH (10:00)
[2022-07-16] MEDS: PANTOPRAZOLE 40 MG TAB PO SCH (10:00)
[2022-07-16] MEDS: BENAZEPRIL HCL 10 MG TAB PO SCH (10:00)
[2022-07-16] MEDS: ENOXAPARIN SOD 40 MG/0.4 ML SYRINGE SC SCH (10:01)
[2022-07-16] MEDS: ALPRAZolam 0.25 MG TAB PO PRN (15:40)
[2022-07-16 19:11] VITALS: BP 99/59
[2022-07-17 05:00] VITALS: BP 121/55
[2022-07-17] MEDS: MORPHINE SULFATE 4 MG/ML SYR/VIAL IV PRN ×4 (05:22→22:39)
[2022-07-17] MEDS: LEVOTHYROXINE SODIUM 25 MCG TAB PO SCH (06:27)
[2022-07-17] MEDS: ACCU-CHEK COMFORT CURVE STRIP VI SCH ×4 (06:50→22:00)
[2022-07-17] MEDS: InsuLIN REG 1unit/0.01ml Soln (100units/ml) SC SCH ×4 (06:50→22:00)
[2022-07-17 08:30] VITALS: BP 114/52
[2022-07-17] MEDS: LORazepam 2MG/ML-1ML VIAL IV PRN ×2 (08:54→20:43)
[2022-07-17 09:05] VITALS: BP 114/52
[2022-07-17] MEDS: FERROUS SULFATE 325mg EC TAB PO SCH ×2 (10:30→22:39)
[2022-07-17] MEDS: BENAZEPRIL HCL 10 MG TAB PO SCH (10:31)
[2022-07-17] MEDS: amLODIPine BESYLATE 5 MG TAB PO SCH (10:31)
[2022-07-17] MEDS: PANTOPRAZOLE 40 MG TAB PO SCH (10:31)
[2022-07-17] MEDS: FUROSEMIDE 20 MG TAB PO SCH (10:32)
[2022-07-17] MEDS: ASCORBIC ACID 500 MG TAB PO SCH ×2 (10:32→22:39)
[2022-07-17] MEDS: ENOXAPARIN SOD 40 MG/0.4 ML SYRINGE SC SCH (10:32)
[2022-07-17 13:10] VITALS: BP 120/70
[2022-07-17 17:05] VITALS: BP 106/79
[2022-07-17 22:00] VITALS: BP 114/38
[2022-07-18] VITALS (8 sets, daily range): BP systolic 105–115; BP diastolic 59–65
[2022-07-18] MEDS ORDERED: levETIRAcetam 500 MG/5ML INJ IV ONE (00:22)
[2022-07-18] MEDS: LEVOTHYROXINE SODIUM 25 MCG TAB PO SCH (06:19)
[2022-07-18] MEDS: MORPHINE SULFATE 4 MG/ML SYR/VIAL IV PRN ×3 (06:28→15:22)
[2022-07-18] MEDS: ACCU-CHEK COMFORT CURVE STRIP VI SCH ×3 (06:31→16:33)
[2022-07-18] MEDS: FERROUS SULFATE 325mg EC TAB PO SCH (09:07)
[2022-07-18] MEDS: BENAZEPRIL HCL 10 MG TAB PO SCH (09:07)
[2022-07-18] MEDS: amLODIPine BESYLATE 5 MG TAB PO SCH (09:08)
[2022-07-18] MEDS: FUROSEMIDE 20 MG TAB PO SCH (09:09)
[2022-07-18] MEDS: PANTOPRAZOLE 40 MG TAB PO SCH (09:10)
[2022-07-18] MEDS: ASCORBIC ACID 500 MG TAB PO SCH (09:10)
[2022-07-18] MEDS: ENOXAPARIN SOD 40 MG/0.4 ML SYRINGE SC SCH (09:12)
[2022-07-18] MEDS: InsuLIN REG 1unit/0.01ml Soln (100units/ml) SC SCH ×3 (09:20→16:33)
[2022-07-18] MEDS: ALPRAZolam 0.25 MG TAB PO PRN (14:01)
[2022-07-18] MEDS ORDERED: ALBUTEROL SULF 2.5 MG/0.5ML(0.5%) NEB SOLN NEB PRN (15:15)
[2022-07-18] MEDS ORDERED: ALBUTEROL SULF 2.5 MG/0.5ML(0.5%) NEB SOLN ONE (15:17)
== END 2022-07-18 19:45 | DRG 101 ==
LOC: ER 14:11 → EDBD 14:11 → TELE 17:28 → TELE-WESTW 07-16 18:13
PROVIDERS: ADMIT Nurse Practitioner Family; ATTEND Internal Medicine
DX: G40.409 Other generalized epilepsy and epileptic syndromes, not intractable, without status epilepticus (principal); J96.10 Chronic respiratory failure, unspecified whether with hypoxia or hypercapnia; F03.94 Unspecified dementia, unspecified severity, with anxiety; Z20.822 Contact with and (suspected) exposure to COVID-19; E03.9 Hypothyroidism, unspecified; K21.9 Gastro-esophageal reflux disease without esophagitis; G80.9 Cerebral palsy, unspecified; E11.9 Type 2 diabetes mellitus without complications; F41.9 Anxiety disorder, unspecified; I11.0 Hypertensive heart disease with heart failure; F32.A Depression, unspecified; I50.9 Heart failure, unspecified; E78.5 Hyperlipidemia, unspecified; J44.9 Chronic obstructive pulmonary disease, unspecified; Z82.49 Family history of ischemic heart disease and other diseases of the circulatory system; Z79.899 Other long term (current) drug therapy; Z90.710 Acquired absence of both cervix and uterus; Z88.5 Allergy status to narcotic agent; Z88.8 Allergy status to other drugs, medicaments and biological substances; Z88.6 Allergy status to analgesic agent; Z91.041 Radiographic dye allergy status; Z68.32 Body mass index [BMI] 32.0-32.9, adult
CPT/HCPCS: 36415; 70450; 71045; 80053; 80307; 81001; 82962; 83735; 83880; 84484; 85025; 87081; 87426; 94640; 95819; 96365; 96366; 99291; G0378; J1815; J2405; J7060

== ENCOUNTER 2024-07-19 23:28 | Inpatient (IN) | payer MEDICARE, MEDICAID ==
[~2024-07-19] VITALS: Ht 167.6 cm; Wt 87.0 kg
[~2024-07-19 23:28] MED LIST changes: -BENA10TA15 PO; +BENA10TA90 PO; -LEV50T PO; -LEVE500T32 PO; +LEVE500T40 PO; +LEVO-848 PO
--- NOTE | 2024-07-19 23:46 | ED.PDOC ---
History of Present Illness HPI Comments 69-year-old female presents with a chief complaint of tachypnea and chest pain. Patient states that her pain started on her right side, is now on her left side and is sharp. Patient is on oxygen at this time. Patient mentions that it hurts to breathe especially on deep inspiration. Patient denies any nausea, vomiting, diarrhea, or abdomen pain. Chief Complaint: Shortness of Breath Time Seen by MD: 23:40 Primary Care Provider: UNKNOWN Reviewed Notes: Medications, Allergies Allergies: Coded Allergies: Aspirin (Verified Allergy, Severe, 03/14/15) Ketorolac Tromethamine (Verified Allergy, Severe, 03/14/15) Acetaminophen (Verified Allergy, Unknown, 07/17/22) pt states "allergic to it" (verified with Lorena GUZMAN) Carbamazepine (Verified Allergy, Unknown, 10/27/14) Codeine (Verified Allergy, Unknown, 10/27/14) Hydrocodone (Verified Allergy, Unknown, 07/17/22) pt states "allergic to it" (verified with Lorena GUZMAN) Iodine (Verified Allergy, Unknown, 10/27/14) Phenytoin (Verified Allergy, Unknown, 10/27/14) Home Meds Active Scripts Ciprofloxacin Hcl (Cipro) 500 Mg Tab, 1 TAB PO BID, #14 TAB Prov:FUNMILAYO JESUS NP 01/31/22 Pramipexole Dihydrochloride Mo (MIRAPEX TABLET) 0.25 Mg Tb, 0.25 MG PO HS for 30 Days, #30 TAB Prov:ZACARIAS MAYA MD 04/13/19 Levetiracetam (Keppra) 500 Mg Tab, 2 TAB PO BID for 30 Days, #120 TAB 0 Refills Prov:ZACARIAS MAYA MD 04/13/19 Reported Medications Trazodone HCl (Trazodone Hydrochloride) 50 Mg Tab, 50 MG PO, TAB 01/28/22 Ferrous Sulfate (FERROUS SULFATE) 325 Mg Tb, 1 TAB PO BID, #60 TAB 3 Refills 07/21/21 Ascorbic Acid (VITAMIN C TABLET) 500 Mg Tb, 1 TAB PO BID, #60 TAB 07/21/21 Cholecalciferol (VITAMIN D3) 1,000 Unit Chw, 1000 UNIT PO DAILY, TAB.CHEW 07/21/21 Mirabegron Base (MYRBETRIQ) 25 Mg Tab, 25 MG PO HS, TAB 07/21/21 Lacosamide (Vimpat) 100 Mg Tab, 100 MG PO BID, TAB 07/21/21 Metformin Hydrochloride (Metformin Hcl) 500 Mg Tab, 500 MG PO DAILY, TAB 07/21/21 Potassium Chloride (Potassium Chloride ER) 20 Meq Tab, 20 MEQ PO DAILY, TAB 07/21/21 Pantoprazole Sodium Sesquihydr (Protonix) 40 Mg Tab, 40 MG PO DAILY, #30 TAB 07/21/21 Isosorbide Mononitrate (Isosorbide Mononitrate Er) 30 Mg Tab, 10 MG PO BID, #30 TAB 5 Refills 07/21/21 Amlodipine Besylate (NORVASC TABLET) 5 Mg Tb, 10 MG PO DAILY, TAB 07/21/21 Aripiprazole (Abilify) 2 Mg Tab, 10 MG PO BID, TAB 07/21/21 Morphine Sulfate (Morphine Sulfate) 15 Mg Tab, PO, #120 TAB 04/10/19 Furosemide (Lasix) 20 Mg Tb, PO DAILY, #90 TAB 1 Refill 04/10/19 Oxcarbazepine (Trileptal) 150 Mg Tab, 150 MG PO TID, TAB 03/15/15 Olanzapine (OLANZAPINE) 10 Mg Tab, 10 MG PO HS, TAB 03/14/15 Benazepril Hcl (Benazepril Hcl) 10 Mg Tab, 10 MG PO DAILY, TAB 03/14/15 Citalopram Hydrobromide (CeleXA TABLET) 20 Mg Tb, 1 TAB PO DAILY, #30 TAB 5 Refills 03/14/15 Levothyroxine Sodium (SYNTHROID TABLET) 50 Mcg Tb, 25 MCG PO DAILY 03/14/15 Risperidone (RisperDAL TABLET) 1 Mg Tb, 1 TAB PO BID, #30 TAB 1 Refill 03/14/15 Rosuvastatin Calcium (Crestor) 10 Mg Tab, 10 MG PO DAILY, #30 03/14/15 Information Source: Patient Mode of Arrival: EMS Severity: Moderate Timing: Hours Duration: Since onset 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: 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, Oxygen Past Medical History PAST MEDICAL HISTORY: Anxiety, Asthma, CHF, COPD, Dementia, DM, HTN, Seizures, Thyroid, UTI'S Surgical History: Appendectomy, Hysterectomy SUMMER NANNY History: No Pertinent SUMMER NANNY History Family History Family History: Reviewed,noncontributory to illness Social History Smoker: Non-Smoker, Quit Greater Than 1 Year Alcohol: Denies ETOH Use Drugs: Denies Drug Use Lives In: Assisted Care Constitutional: denies: chills, diaphoresis, fatigue, fever, malaise, sweats, weakness, others EENTM: denies: blurred vision, double vision, ear bleeding, ear discharge, ear drainage, ear pain, ear ringing, eye pain, eye redness, hearing loss, mouth pain, mouth swelling, nasal discharge, nose bleeding, nose congestion, nose pain, photophobia, tearing, throat pain, throat swelling, voice changes, others Respiratory: reports: shortness of breath; denies: cough, hemoptysis, orthopnea, SOB at rest, SOB with excertion, stridor, wheezing, others Cardiovascular: reports: chest pain; denies: dizzy spells, diaphoresis, Dyspnea on exertion, edema, irregular heart beat, left arm pain, lightheadedness, palpitations, PND, syncope, others Gastrointestinal: denies: abdomen distended, abdominal pain, blood streaked bowels, constipated, diarrhea, dysphagia, difficulty swallowing, hematemesis, melena, nausea, poor appetite, poor fluid intake, rectal bleeding, rectal pain, vomiting, others Genitourinary: denies: abnormal vagina bleeding, burning, dyspareunia, dysuria, flank pain, frequency, hematuria, incontinence, pain, , vagina discharge, urgency, others Neurological: denies: dizziness, fainting, headache, left sided numbness, left sided weakness, numbness, paresthesia, pre-existing deficit, right sided numbness, right sided weakness, seizure, speech problems, tingling, tremors, weakness, others Musculoskeletal: denies: back pain, gout, joint pain, joint swelling, muscle pain, muscle stiffness, neck pain, others Integumetry: denies: bruises, change in color, change in hair/nails, dryness, laceration, lesions, lumps, rash, wounds, others Allergic/Immunocompromised: denies: Difficulty Healing, Frequent Infections, Hives, Itching, others Hematologic/Lymphatic: denies: anemia, blood clots, easy bleeding, easy bruising, swollen glands, others Endocrine: denies: excessive hunger, excessive sweating, excessive thirst, excessive urination, flushing, intolerance to cold, intolerance to heat, unexplained weight gain, unexplained weight loss, others Psychiatric: denies: anxiety, bipolar disorder, depression, hopeless, panic disorder, schizophrenia, sleepless, suicidal, others All Other Systems: Reviewed and Negative Physical Exam General Appearance: Mild Distress (TACHYPNIC), Normal, Other (ON NASAL CANNULA OXYGEN) HEENT: Normal ENT Inspection, Pharynx Normal, TMs Normal Neck: Full Range of Motion, Non-Tender, Normal, Normal Inspection Respiratory: Chest Non-Tender, Lungs Clear, No Accessory Muscle Use, No Respiratory Distress, Normal Breath Sounds Cardiovascular: No Edema, No JVD, No Murmur, No Gallop, Normal Peripheral Pulses, Regular Rate/Rhythm Breast Exam: Deferred Gastrointestinal: No Organomegaly, Non Tender, No Pulsatile Mass, Normal Bowel Sounds, Soft Genitalia: Deferred Pelvic: Deferred Rectal: Deferred Extremities: No calf tenderness, Normal capillary refill, Normal inspection, Normal range of motion, Non-tender, No pedal edema Musculoskeletal : Apperance: Normal Neurologic: Alert, 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 Was a procedure done?: No Differential Dx Considerations may include: ACS, CVA, gastritis, viral syndrome X-Ray, Labs, Meds, VS Vital Signs Date Time Temp Pulse Resp B/P (MAP) Pulse Ox O2 Delivery O2 Flow Rate FiO2 07/19/24 23:32 98.2 81 18 128/64 (85) 99 98.2 07/19/24 23:32 75 Lab Test 07/19/24 00:13 Range/Units White Blood Count 8.6 4.4-10.8 10^3/uL Red Blood Count 4.04 4.0-5.20 10^6/uL Hemoglobin 12.9 12.2-16.2 g/dL Hematocrit 37.5 36.0-46.0 % Mean Corpuscular Volume 92.9 80.0-100.0 fL Mean Corpuscular Hemoglobin 31.9 28.0-32.0 pg Mean Corpuscular Hemoglobin Concent 34.4 32.0-36.0 g/dL Red Cell Distribution Width 12.9 11.8-14.3 % Platelet Count 235 140-450 10^3/uL Mean Platelet Volume 6.4 L 6.9-10.8 fL Neutrophils (%) (Auto) 52.3 37.0-80.0 % Lymphocytes (%) (Auto) 40.7 10.0-50.0 % Monocytes (%) (Auto) 4.5 0.0-12.0 % Eosinophils (%) (Auto) 1.8 0.0-7.0 % Basophils (%) (Auto) 0.7 0.0-2.0 % Neutrophils # (Auto) 4.5 1.6-8.6 10 ^3/uL Lymphocytes # (Auto) 3.5 0.4-5.4 10 ^3/uL Monocytes # (Auto) 0.4 0-1.3 10 ^3/uL Eosinophils # (Auto) 0.2 0-0.8 10 ^3/uL Basophils # (Auto) 0.1 0-0.2 10 ^3/uL Nucleated Red Blood Cells 0.1 % Sodium Level 136 136-145 mmol/L Potassium Level 3.6 3.5-5.1 mmol/L Chloride Level 100 98-107 mmol/L Carbon Dioxide Level 26 20-31 mmol/L Anion Gap 10 5-15 Blood Urea Nitrogen 6 L 9-23 mg/dL Creatinine 0.62 0.550-1.02 mg/dL Glomerular Filtration Rate Calc 98 >90 mL/min BUN/Creatinine Ratio 9.7 L 10.0-20.0 Serum Glucose 100 74-106 mg/dL Calcium Level 9.5 8.7-10.4 mg/dL Troponin I High Sensitivity < 3 L </=34 ng/L B-Type Natriuretic Peptide 36.83 0-100 pg/mL Time of 1ST Reevaluation: 00:10 Reevaluation 1ST: Unchanged Patient Education/Counseling: Diagnosis, Treatment Family Education/Counseling: No Family Present Departure 1 Departure Time of Disposition: 01:10 (Patient presented with chest pain that was concerning for possible STEMI, ACS, PE, Pneumonia, Muscle Strain, COPD, Dissection. Data: 1. I ordered and reviewed the result of at least 3 labs including a CBC, BMP, and Troponin. 2. I independently interpreted the following tests: EKG which shows sinus arrhythmia and Chest X-ray which shows benign chest.Risk:This patient has a high risk of morbidity due to further diagnostic t esting or treatment and may suffer from an acute cardiac or respiratory disorder. Workup reveals acute chest and patient should be admitted for further workup and possible expert consultation. ) Impression: Primary Impression: Acute chest pain Additional Impression: Shortness of breath Disposition: ADMITTED INPATIENT Admit to: Med Surg Condition: Serious Critical Care Note Critical Care Time?: Yes Critical care comment: Acute chest pain Authorized and Performed by: Abhi Son MD Total critical care time: Approximately 39 minutes Due to a high probability of clinically significant, life threatening deterioration, the patient required my highest level of preparedness to inter vene emergently and I personally spent this critical care time directly and personally managing the patient. This critical care time included obtaining a history; examining the patient; pulse oximetry; ordering and review of studies; arranging urgent treatment with development of a management plan; evaluation of patient's response to treatment; frequent reassessment; and, discussions with other providers. This critical care time was performed to assess and manage the high probability of imminent, life-threatening deterioration that could result in multi-organ failure. It was exclusive of separately billable procedures and treating other patients and teaching time. Please see my other sections and the rest of the note for further information on patient assessment and treatment. Stability Stability form required: No I personally scribed for ABHI SON MD ([email or web address]) on 07/19/24 at 23:45. Electronically submitted by Fred Purcell ([email or web address]). ABHI SON MD July 19, 2024 23:45
[2024-07-20] VITALS (10 sets, daily range): BP systolic 130–155; BP diastolic 56–76; PULSE 67–78; RESP 15–19; TEMP 97.9–98.8; O2SAT 95–100
[2024-07-20 00:31] LABS: Basophils # (auto) 0.1 10 ^3/uL (0-0.2); Basophils % (auto) 0.7 % (0.0-2.0); Eosinophils # (auto) 0.2 10 ^3/uL (0-0.8); Eosinophils % (auto) 1.8 % (0.0-7.0); Hematocrit 37.5 % (36.0-46.0); Hemoglobin 12.9 g/dL (12.2-16.2); Lymphocytes # (auto) 3.5 10 ^3/uL (0.4-5.4); Lymphocytes % (auto) 40.7 % (10.0-50.0); Mean Corpuscular Hemoglobin 31.9 pg (28.0-32.0); Mean Corpuscular Hgb Conc. 34.4 g/dL (32.0-36.0); Mean Corpuscular Volume 92.9 fL (80.0-100.0); Monocytes # (auto) 0.4 10 ^3/uL (0-1.3); Monocytes % (auto) 4.5 % (0.0-12.0); Neutrophils # (auto) 4.5 10 ^3/uL (1.6-8.6); Neutrophils % (auto) 52.3 % (37.0-80.0); Nucleated Red Blood Cells % 0.1 %; Platelet Count (auto) 235 10^3/uL (140-450); Red Blood Cells 4.04 10^6/uL (4.0-5.20); Red Cell Distribution Width 12.9 % (11.8-14.3); White Blood Cell 8.6 10^3/uL (4.4-10.8)
--- NOTE | 2024-07-20 00:32 | DVH ---
CHEST RADIOGRAPH Indication: sob Technique: Single frontal view of the chest was obtained COMPARISON: XY CHEST PORTABLE on DOS: 07/12/23 FINDINGS: Lines and Tubes: None Lungs: Clear. Pleura: No effusion. No pneumothorax. Cardiomediastinal contours: Mild cardiomegaly. IMPRESSION: No acute disease. Mild cardiomegaly. No change compared to the prior chest x-ray from June 2023.
[2024-07-20 00:52] LABS: Chloride 100 mmol/L (98-107); Potassium 3.6 mmol/L (3.5-5.1)
[2024-07-20 00:53] LABS: Anion Gap 10 (5-15); Calcium 9.5 mg/dL (8.7-10.4); Carbon Dioxide 26 mmol/L (20-31)
[2024-07-20 00:58] LABS: BUN/Creatinine Ratio 9.7 (10.0-20.0); Glucose 100 mg/dL (74-106)
[2024-07-20 00:59] LABS: Blood Urea Nitrogen 6 mg/dL (9-23); Sodium 136 mmol/L (136-145)
[2024-07-20] MEDS: MORPHINE SULFATE 4 MG/ML SYR/VIAL IV ONE ×2 (02:04→06:11)
[2024-07-20] MEDS: ONDANSETRON HCL 4 MG/2 ML VIAL IV ONE ×2 (02:04→06:10)
--- NOTE | 2024-07-20 04:40 | ECG ---
[facility] Test Date: 2024-07-19 Test Time: 23:32:16 Pat Name: ANTONIO CASILLAS Department: ED Room: [address] [place] [address] Gender: F Skein Spooler: KI : 1955 Requested By: ABHI SON Order Number: [id number] Reading MD: Rajiv Deutsch Measurements Intervals [place] Rate: 75 P: 62 VA: 169 QRS: 7 QRSD: 113 T: 4 QT: 411 QTc: 460 Interpretive Statements Sinus rhythm Borderline intraventricular conduction delay Low voltage, precordial leads RSR' in V1 or V2, right VCD or RVH Borderline T abnormalities, diffuse leads Electronically Signed On 07-20-2024 12:17:38 PDT by Rajiv Deutsch Please click the below link to view image of tracing.
[2024-07-20] MEDS: levETIRAcetam 500 MG TAB PO SCH ×2 (08:40→21:05)
[2024-07-20 08:51] LABS: Urine Bacteria FEW /hpf (None Seen); Urine Blood Negative /uL (Negative); Urine Clarity Clear (Clear); Urine Color Colorless (Yellow); Urine Protein, UAD Negative (Negative); Urine Specific Gravity 1.003 (1.001-1.035); Urine Squamous Epithelial Cell FEW /hpf (<5); Urine Urobilinogen Normal (Negative); Urine pH 6.5 (5.0-9.0)
[2024-07-20] MEDS ORDERED: MORPHINE SULFATE INJ 2 MG/ml SYRG IV PRN (11:30)
[2024-07-20] MEDS ORDERED: NITROGLYCERIN 0.4 MG SL TAB SL PRN (11:30)
--- NOTE | 2024-07-20 11:41 | DVHHP2 ---
History of Present Illness Reason for Visit: Shortness of breath History of Present Illness Cee Reina is a 69-year-old female with past medical history of hypertension, hypothyroidism, CHF, COPD, dementia, asthma, and diabetes, who came in due to right chest pain and shortness of breath. Patient resides at [facility], and s [place] she is wheelchair bound at baseline. She wears oxygen at all times, but states the pain was causing her to feel short of breath despite the oxygen. Denies fever, nausea, or vomiting. 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: Other (seizures, dementia,) Psych: Anxiety Endocrine: Diabetes Past Surgical History: Hysterectomy, Other (right knee and right leg), Tonsillectomy Smoke: No ALCOHOL: none Drugs: None Lives: Prison Review of Systems Constitutional: No: Fever, Chills, Sweats, Weakness, Malaise, Other Eyes: No: Pain, Vision change, Conjunctivae inflammation, Eyelid inflammation, Other, Redness ENT: No: Ear pain, Ear discharge, Nose pain, Nose discharge, Nose congestion, Mouth pain, Mouth swelling, Throat pain, Throat swelling, Other Respiratory: Shortness of breath; No: Cough, Dry, SOB with excertion, Wheezing, Hemoptysis, Pleuritic Pain, Sputum, Wheezing, Other Cardiovascular: Chest Pain; No: Palpitations, Orthopnea, Paroxysmal Noc. Dyspnea, Edema, Lt Headedness, Other Gastrointestinal: No: Nausea, Vomiting, Abdominal Pain, Diarrhea, Constipation, Melena, Hematochezia, Other Genitourinary: No Dysuria, No Frequency, No Incontinence, No Hematuria, No Retention, No Other Musculoskeletal: No: other, neck pain, shoulder pain, arm pain, back pain, hand pain, leg pain, foot pain Skin: No: Rash, Lesions, Jaundice, Bruising, Other Neurological: No: Weakness, Numbness, Incoordination, Change in speech, Confusion, Seizures, Other Allergies: Coded Allergies: Aspirin (Verified Allergy, Severe, 03/14/15) Ketorolac Tromethamine (Verified Allergy, Severe, 03/14/15) Acetaminophen (Verified Allergy, Unknown, 07/17/22) pt states "allergic to it" (verified with Lorena GUZMAN) Carbamazepine (Verified Allergy, Unknown, 10/27/14) Codeine (Verified Allergy, Unknown, 10/27/14) Hydrocodone (Verified Allergy, Unknown, 07/17/22) pt states "allergic to it" (verified with Lorena GUZMAN) Iodine (Verified Allergy, Unknown, 10/27/14) Phenytoin (Verified Allergy, Unknown, 10/27/14) Medications Current Medications Medications Dose Ordered Sig/Clari Route Start Time Stop Time Status Last Admin Dose Admin Levetiracetam 1,000 mg BID PO 07/20/24 10:00 07/20/24 08:40 1,000 MG Exam Vital Signs Vital Signs Date Time Temp Pulse Resp B/P (MAP) Pulse Ox O2 Delivery O2 Flow Rate FiO2 07/20/24 09:56 79 16 155/56 (89) 98 07/20/24 08:42 Nasal Cannula* 2 28 07/20/24 08:41 98.8 98.8 General Appearance: Alert, Oriented X3, Cooperative HEENT: Atraumatic, PERRLA Respiratory: Clear to auscultation Cardiovascular: Regular rate, Normal S1, Normal S2 Abdominal: Normal bowel sounds, Soft, No tenderness Extremities: No clubbing, No cyanosis, No edema, Normal pulses, No tenderness/swelling Skin: No rashes, No breakdown, No significant lesion Neuro: Normal speech, Other (wheelchair bound at baseline) Psych/Mental Status: Mental status NL, Mood NL Labs/Xrays Labs Test 07/20/24 08:05 07/20/24 01:31 07/19/24 00:13 Range/Units Urine Color Colorless Yellow Urine Clarity Clear Clear Urine pH 6.5 5.0-9.0 Urine Specific [place] 1.003 1.001-1.035 Urine Protein Negative Negative Urine Ketones Negative Negative Urine Blood Negative Negative /uL Urine Nitrite Negative Negative Urine Bilirubin Negative Negative Urine Urobilinogen Normal Negative mg/dL Urine Leukocyte Esterase Negative Negative /uL Urine RBC 1 0 - 4 /hpf Urine Microscopic WBC 0-5 /HPF Urine Squamous Epithelial Cells Few <5 /hpf Urine Bacteria Few H None Seen /hpf Urine Glucose Normal Normal mg/dL Troponin I High Sensitivity < 3 L </=34 ng/L White Blood Count 8.6 4.4-10.8 10^3/uL Red Blood Count 4.04 4.0-5.20 10^6/uL Hemoglobin 12.9 12.2-16.2 g/dL Hematocrit 37.5 36.0-46.0 % Mean Corpuscular Volume 92.9 80.0-100.0 fL Mean Corpuscular Hemoglobin 31.9 28.0-32.0 pg Mean Corpuscular Hemoglobin Concent 34.4 32.0-36.0 g/dL Red Cell Distribution Width 12.9 11.8-14.3 % Platelet Count 235 140-450 10^3/uL Mean Platelet Volume 6.4 L 6.9-10.8 fL Neutrophils (%) (Auto) 52.3 37.0-80.0 % Lymphocytes (%) (Auto) 40.7 10.0-50.0 % Monocytes (%) (Auto) 4.5 0.0-12.0 % Eosinophils (%) (Auto) 1.8 0.0-7.0 % Basophils (%) (Auto) 0.7 0.0-2.0 % Neutrophils # (Auto) 4.5 1.6-8.6 10 ^3/uL Lymphocytes # (Auto) 3.5 0.4-5.4 10 ^3/uL Monocytes # (Auto) 0.4 0-1.3 10 ^3/uL Eosinophils # (Auto) 0.2 0-0.8 10 ^3/uL Basophils # (Auto) 0.1 0-0.2 10 ^3/uL Nucleated Red Blood Cells 0.1 % Sodium Level 136 136-145 mmol/L Potassium Level 3.6 3.5-5.1 mmol/L Chloride Level 100 98-107 mmol/L Carbon Dioxide Level 26 20-31 mmol/L Anion Gap 10 5-15 Blood Urea Nitrogen 6 L 9-23 mg/dL Creatinine 0.62 0.550-1.02 mg/dL Glomerular Filtration Rate Calc 98 >90 mL/min BUN/Creatinine Ratio 9.7 L 10.0-20.0 Serum Glucose 100 74-106 mg/dL Calcium Level 9.5 8.7-10.4 mg/dL B-Type Natriuretic Peptide 36.83 0-100 pg/mL CHEST RADIOGRAPH FINDINGS: Lines and Tubes: None Lungs: Clear. Pleura: No effusion. No pneumothorax. Cardiomediastinal contours: Mild cardiomegaly. IMPRESSION: No acute disease. Mild cardiomegaly. No change compared to the prior chest x-ray from June 2023. Assessment/Plan Assessment/Plan Assessment: Acute chest pain, Shortness of breath, Seizures, COPD, CHF, Hypothyroidism, Diabetes, Plan: Admit to Tele, Chest pain protocol, Breathing treatments as needed, Pain management, Home medications reconciled, Plan discussed with: Patient My Orders Orders - LAURA ROE Procedure Category Date Status Time Admit ADMIT 07/20/24 Transmitted 11:24 Code Status CODE 07/20/24 Transmitted 11:24 Sodium Chloride Lock PHA 07/20/24 Logged (Saline Lock Ns) 14:00 Ondansetron Hcl PHA 07/20/24 Logged (Zofran) 11:30 Docusate Sodium PHA 07/20/24 Logged Capsule (Colace 11:30 Complete Blood Count LAB 07/21/24 Verified 04:00 Comprehensive LAB 07/21/24 Verified Metabolic Panel 04:00 Condition: Serious BINDU 07/20/24 In Process 11:24 Morphine Sulfate PHA 07/20/24 Logged Injection 11:30 Nitroglycerin PHA 07/20/24 Transmitted Sublingual (Ntrostat 11:30 Morphine Sulfate PHA 07/20/24 Transmitted Injection 11:30 Stat Ekg For Chest BINDU 07/20/24 In Process Pain 11:24 Notify Md Of Changes BINDU 07/20/24 In Process From Base 11:24 Accounts Payable Representative For BINDU 07/20/24 In Process 24 Hours 11:24 Emergency Dysrhythmia BINDU 07/20/24 In Process Protocol 11:24 Rhythm Strips Once BINDU 07/20/24 In Process Every Shift 11:24 Oxygen By Nasal RT 07/20/24 Transmitted Cannula 11:24 Albuterol Medneb PHA 07/20/24 Verified (Ventolin Medneb) 11:30 Ipratropium Medneb PHA 07/20/24 Verified (Atrovent Medneb) 11:30 Date of Service: July 20, 2024 Billing Provider: LAURA ROE Common Visit Codes: [id number] INP/OBS CARE (MOD) LAURA ROE July 20, 2024 11:41
[2024-07-20] MEDS ORDERED: DEXTROSE (50%) 50ML SYRG IV PRN (11:45)
[2024-07-20] MEDS: MORPHINE SULFATE INJ 2 MG/ml SYRG IV PRN (13:23)
[2024-07-20] MEDS: SODIUM CHLOR 0.9% PF (SALINE LOCK) 10ML VIAL/SYR IV SCH (14:00)
[2024-07-20] MEDS ORDERED: ZOLP5TAB5 PO (15:11)
[2024-07-20] MEDS ORDERED: ATOR40TA52 PO (15:11)
[2024-07-20] MEDS ORDERED: PRAM0.373 PO (15:11)
[2024-07-20] MEDS ORDERED: OXCA300T50 PO (15:11)
[2024-07-20] MEDS: ACCU-CHEK COMFORT CURVE STRIP VI SCH (17:00)
[2024-07-20] MEDS: InsuLIN REG 1unit/0.01ml Soln (100units/ml) SC SCH ×2 (17:00→21:26)
[2024-07-20] MEDS: IPRATROPIUM BROM 0.5 MG/2.5ML INH SOL NEB PRN (20:33)
[2024-07-20] MEDS: ALBUTEROL SULF 2.5 MG/0.5ML(0.5%) NEB SOLN NEB PRN (20:33)
[2024-07-20] MEDS: FERROUS SULFATE 325mg EC TAB PO SCH (21:04)
[2024-07-20] MEDS: ISOSORBIDE MONONITRATE 20 MG TAB PO SCH (21:05)
[2024-07-20] MEDS: PRAMIPEXOLE DIHYDROCHLORIDE MO 0.25 MG TAB PO SCH (21:06)
[2024-07-20] MEDS: ASCORBIC ACID 500 MG TAB PO SCH (21:07)
[2024-07-20] MEDS: LACOSAMIDE 50 MG TAB PO SCH (21:07)
[2024-07-20] MEDS: MORPHINE SULF 15mg ER tab PO SCH (21:07)
[2024-07-20] MEDS: ATORVASTATIN 20 MG TAB PO SCH (21:07)
[2024-07-20] MEDS: risperiDONE 1 MG TAB PO SCH (21:07)
[2024-07-20] MEDS ORDERED: LACOSAMIDE 100 MG PO SCH (22:00)
[2024-07-20] MEDS ORDERED: OXcarbazepine 300 MG TAB PO SCH (22:00)
[2024-07-21] VITALS (12 sets, daily range): BP systolic 108–125; BP diastolic 63–72; PULSE 69–105; RESP 16–22; TEMP 97.5–98.4; O2SAT 95–98
[2024-07-21 06:10] LABS: Basophils # (auto) 0 10 ^3/uL (0-0.2); Basophils % (auto) 0.5 % (0.0-2.0); Eosinophils # (auto) 0.1 10 ^3/uL (0-0.8); Eosinophils % (auto) 1.1 % (0.0-7.0); Hematocrit 37.7 % (36.0-46.0); Lymphocytes # (auto) 1.8 10 ^3/uL (0.4-5.4); Lymphocytes % (auto) 26.7 % (10.0-50.0); Mean Corpuscular Hemoglobin 32.1 pg (28.0-32.0); Mean Corpuscular Hgb Conc. 34.4 g/dL (32.0-36.0); Mean Corpuscular Volume 93.3 fL (80.0-100.0); Monocytes # (auto) 0.4 10 ^3/uL (0-1.3); Monocytes % (auto) 6.2 % (0.0-12.0); Neutrophils # (auto) 4.4 10 ^3/uL (1.6-8.6); Neutrophils % (auto) 65.5 % (37.0-80.0); Nucleated Red Blood Cells % 0.1 %; Platelet Count (auto) 222 10^3/uL (140-450); Red Blood Cells 4.04 10^6/uL (4.0-5.20); Red Cell Distribution Width 12.8 % (11.8-14.3); White Blood Cell 6.8 10^3/uL (4.4-10.8)
[2024-07-21 06:44] LABS: Alanine Aminotransferase 16 U/L (7-40); Albumin 4.5 g/dL (3.2-4.8); Alkaline Phosphatase 90 U/L (46-116); Anion Gap 11 (5-15); Aspartate Aminotransferase 12 U/L (13-40); BUN/Creatinine Ratio 14.1 (10.0-20.0); Bilirubin, Total 0.4 mg/dL (0.2-1.0); Blood Urea Nitrogen 9 mg/dL (9-23); Calcium 10.1 mg/dL (8.7-10.4); Carbon Dioxide 26 mmol/L (20-31); Chloride 104 mmol/L (98-107); Glucose 103 mg/dL (74-106); Potassium 4.1 mmol/L (3.5-5.1); Sodium 141 mmol/L (136-145); Total Protein 6.9 g/dL (5.7-8.2)
[2024-07-21] MEDS: CITALOPRAM HYDROBR 20 MG TAB PO SCH (09:42)
[2024-07-21] MEDS: CHOLECALCIFEROL (VITD3) 1,000UNIT=25mCg TAB PO SCH (09:45)
[2024-07-21] MEDS: LEVOTHYROXINE SODIUM 50 MCG TAB PO SCH (09:46)
[2024-07-21] MEDS: amLODIPine BESYLATE 5 MG TAB PO SCH (09:47)
[2024-07-21] MEDS: FUROSEMIDE 20 MG TAB PO SCH (09:47)
[2024-07-21] MEDS: PANTOPRAZOLE 40 MG TAB PO SCH (09:48)
--- NOTE | 2024-07-21 12:03 | DVHPN2 ---
Progress Note - Dictate Date Seen: July 21, 2024 Medical Necessity Reason Pt with a Central, PICC or Fol: No vital signs Vital Sign Date Time Temp Pulse Resp B/P (MAP) Pulse Ox O2 Delivery O2 Flow Rate FiO2 07/21/24 10:00 97 Nasal Cannula 2.0 07/21/24 10:00 28 07/21/24 09:47 110/69 07/21/24 09:00 98.4 69 18 98.4 Total Intake and Output 07/20/24 07/20/24 07/21/24 15:00 23:00 07:00 Intake Total 0 ml 240 ml Balance 0 ml 240 ml medications Current Medications Medications Dose Ordered Sig/Clari Route Start Time Stop Time Status Last Admin Dose Admin Sodium Chloride 10 ml Q8HR IV 07/20/24 14:00 07/21/24 05:34 10 ML Ondansetron HCl 4 mg Q4HP PRN IV 07/20/24 11:30 Docusate Sodium 100 mg BIDPRN PRN PO 07/20/24 11:30 Morphine Sulfate 2 mg Q4HPRN PRN IV 07/20/24 11:30 07/20/24 17:35 2 MG Nitroglycerin 0.4 mg Q5MINP PRN SL 07/20/24 11:30 Morphine Sulfate 2 mg Q30M PRN IV 07/20/24 11:30 Albuterol 2.5 mg Q4HPRN PRN NEB 07/20/24 11:30 07/20/24 20:33 2.5 MG Ipratropium [place] 0.5 mg Q4HPRN PRN NEB 07/20/24 11:30 07/20/24 20:33 0.5 MG Diagnostic Test (Pha) 1 strip ACHS 07/20/24 17:00 07/21/24 11:23 1 STRIP Insulin Human Regular HS SC 07/20/24 22:00 Insulin Human Regular AC SC 07/20/24 17:00 Dextrose 50 ml UD PRN IV 07/20/24 11:45 Amlodipine Besylate 10 mg DAILY PO 07/21/24 10:00 07/21/24 09:47 10 MG Citalopram Hydrobromide 20 mg DAILY PO 07/21/24 10:00 07/21/24 09:42 20 MG Furosemide 20 mg DAILY PO 07/21/24 10:00 07/21/24 09:47 20 MG Levetiracetam 1,000 mg BID PO 07/20/24 22:00 07/21/24 09:48 1,000 MG Levothyroxine Sodium 25 mcg DAILY PO 07/21/24 10:00 07/21/24 09:46 25 MCG Pantoprazole Sodium 40 mg DAILY PO 07/21/24 10:00 07/21/24 09:48 40 MG Risperidone 1 mg BID PO 07/20/24 22:00 07/21/24 09:48 1 MG Isosorbide Mononitrate 10 mg BID PO 07/20/24 22:00 07/21/24 09:43 10 MG Morphine Sulfate 15 mg Q8HR PO 07/20/24 22:00 07/21/24 05:35 15 MG Ascorbic Acid 500 mg BID PO 07/20/24 22:00 07/21/24 09:45 500 MG Ferrous Sulfate 325 mg BID PO 07/20/24 22:00 07/21/24 09:41 325 MG Cholecalciferol 1,000 unit DAILY PO 07/21/24 10:00 07/21/24 09:45 1,000 UNIT Patient Own Medication 100 mg BID PO 07/20/24 22:00 UNV Zolpidem Tartrate 5 mg QHSP PRN PO 07/20/24 15:15 Atorvastatin Calcium 40 mg HS PO 07/20/24 22:00 07/20/24 21:07 40 MG Oxcarbazepine 300 mg BID PO 07/20/24 22:00 Hold Pramipexole Dihydrochloride 0.375 mg HS PO 07/20/24 22:00 07/20/24 21:06 0.375 MG Lacosamide 100 mg BID PO 07/20/24 22:00 07/21/24 09:44 100 MG objective General Appearance: alert, no distress HEENT: EOMI, PERRLA, normal external inspect of ears, no icterus, no nasal drainage Neck: no carotid bruit, no jugular venous distention (JVD), no lymphadenopathy Chest: normal thorax Respiratory: clear to auscultation, normal air movement Cardiovascular: regular rate and rhythm, no diastolic murmur, no jugular venous distention (JVD), no rub, no systolic murmur Abdominal: soft, no hepatomegaly, no mass, no splenomegaly, no tenderness Genitourinary: grossly normal external Musculoskeletal: no joint tenderness, no swelling Extremities: normal pulses, no calf tenderness, no clubbing, no cyanosis, no edema Skin: no bruising, no jaundice, no rash Neurological: alert, No focal deficit laboratory and microbiology Laboratory Tests 07/21/24 05:27 Test 07/21/24 05:27 Range/Units Serum Glucose 103 74-106 mg/dL Problem List 1. Unstable angina Monitor, Cardiology consult, monitor EKG, trend troponin, DVT prophylaxis 2. COPD Monitor, restart home medications 3. Hypothyroid Monitor, PPI 4. Dementia Monitor 5. Epilepsy Monitor, seizure precautions, antiepileptics 6. DM2 with hyperglycemia Monitor, insulin SS 7. 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 Objective: Patient was admitted for chest pain. Troponin levels are negative. Patient is still complaining of intermittent chest pain at this time. Cardiology has been consulted. Patient does have some concern that her home medications may not be accurate. Chest x ray has no acute findings. Troponin levels are negative. Last echocardiogram was done on 07/12/2024. Estimated EF was 60%. Patient is a resident from [facility]. Patient has underlying history of dementia, COPD, hypothyroidism, and epilepsy. Plan: Continue seizure precautions. Continue home medications. Monitor EKG. Cardiology consult. Plan discussed with: Patient, Other FUNMILAYO JESUS NP July 21, 2024 12:03
[2024-07-21] MEDS: ENOXAPARIN SOD 40 MG/0.4 ML SYRINGE SC SCH (13:09)
[2024-07-21] MEDS: ONDANSETRON HCL 4 MG/2 ML VIAL IV PRN (18:43)
--- NOTE | 2024-07-21 18:57 | DVHPN2 ---
Subjective in bed resting Changes from previous H/P or p: No Changes Eyes: No Pain, No Vision change, No Conjunctivae inflammation, No Eyelid inflammation, No Other, No Redness ENT: No Ear pain, No Ear discharge, No Nose pain, No Nose discharge, No Nose congestion, No Mouth pain, No Mouth swelling, No Throat pain, No Throat swelling, No Other Cardiovascular: Chest Pain; No Palpitations, No Orthopnea, No Paroxysmal Noc. Dyspnea, No Edema, No Lt Headedness, No Other Respiratory: No Cough, No Dry; Shortness of breath; No SOB with excertion, No Wheezing, No Hemoptysis, No Pleuritic Pain, No Sputum, No Other Gastrointestinal: No Nausea, No Vomiting, No Abdominal Pain, No Diarrhea, No Constipation, No Melena, No Hematochezia, No Other Genitourinary: No Dysuria, No Frequency, No Incontinence, No Hematuria, No Retention, No Other Musculoskeletal: No other, No neck pain, No shoulder pain, No arm pain, No back pain, No hand pain, No leg pain, No foot pain Skin: No Rash, No Lesions, No Jaundice, No Bruising, No Other Objective Vitals Vital Signs Date Time Temp Pulse Resp B/P (MAP) Pulse Ox O2 Delivery O2 Flow Rate FiO2 07/21/24 18:45 69 17 132/70 07/21/24 16:34 97.8 96 97.8 07/21/24 10:00 Nasal Cannula 2.0 07/21/24 10:00 28 Intake/Output Intake and Output 07/21/24 07:00 Intake Total 240 ml Balance 240 ml Intake Oral 240 ml General Appearance: Alert, Oriented X3 Lungs: Clear to auscultation Cardiovascular: Regular rate, Normal S1 Abdomen: Normal bowel sounds Medications Current Medications Medications Dose Ordered Sig/Clari Route Start Time Stop Time Status Last Admin Dose Admin Sodium Chloride 10 ml Q8HR IV 07/20/24 14:00 07/21/24 15:01 10 ML Ondansetron HCl 4 mg Q4HP PRN IV 07/20/24 11:30 07/21/24 18:43 4 MG Docusate Sodium 100 mg BIDPRN PRN PO 07/20/24 11:30 Morphine Sulfate 2 mg Q4HPRN PRN IV 07/20/24 11:30 07/21/24 18:45 2 MG Nitroglycerin 0.4 mg Q5MINP PRN SL 07/20/24 11:30 Morphine Sulfate 2 mg Q30M PRN IV 07/20/24 11:30 Albuterol 2.5 mg Q4HPRN PRN NEB 07/20/24 11:30 07/20/24 20:33 2.5 MG Ipratropium [place] 0.5 mg Q4HPRN PRN NEB 07/20/24 11:30 07/20/24 20:33 0.5 MG Diagnostic Test (Pha) 1 strip ACHS 07/20/24 17:00 07/21/24 17:12 1 STRIP Insulin Human Regular HS SC 07/20/24 22:00 Insulin Human Regular AC SC 07/20/24 17:00 07/21/24 17:14 2 UNITS Dextrose 50 ml UD PRN IV 07/20/24 11:45 Amlodipine Besylate 10 mg DAILY PO 07/21/24 10:00 07/21/24 09:47 10 MG Citalopram Hydrobromide 20 mg DAILY PO 07/21/24 10:00 07/21/24 09:42 20 MG Furosemide 20 mg DAILY PO 07/21/24 10:00 07/21/24 09:47 20 MG Levetiracetam 1,000 mg BID PO 07/20/24 22:00 07/21/24 09:48 1,000 MG Levothyroxine Sodium 25 mcg DAILY PO 07/21/24 10:00 07/21/24 09:46 25 MCG Pantoprazole Sodium 40 mg DAILY PO 07/21/24 10:00 07/21/24 09:48 40 MG Risperidone 1 mg BID PO 07/20/24 22:00 07/21/24 09:48 1 MG Isosorbide Mononitrate 10 mg BID PO 07/20/24 22:00 07/21/24 09:43 10 MG Morphine Sulfate 15 mg Q8HR PO 07/20/24 22:00 07/21/24 14:59 15 MG Ascorbic Acid 500 mg BID PO 07/20/24 22:00 07/21/24 09:45 500 MG Ferrous Sulfate 325 mg BID PO 07/20/24 22:00 07/21/24 09:41 325 MG Cholecalciferol 1,000 unit DAILY PO 07/21/24 10:00 07/21/24 09:45 1,000 UNIT Patient Own Medication 100 mg BID PO 07/20/24 22:00 UNV Zolpidem Tartrate 5 mg QHSP PRN PO 07/20/24 15:15 Atorvastatin Calcium 40 mg HS PO 07/20/24 22:00 07/20/24 21:07 40 MG Oxcarbazepine 300 mg BID PO 07/20/24 22:00 Hold Pramipexole Dihydrochloride 0.375 mg HS PO 07/20/24 22:00 07/20/24 21:06 0.375 MG Lacosamide 100 mg BID PO 07/20/24 22:00 07/21/24 09:44 100 MG Enoxaparin Sodium 40 mg DAILY SC 07/21/24 12:30 07/21/24 13:09 40 MG Laboratory Results Laboratory Tests 07/21/24 05:27 Chemistry Test 07/21/24 05:27 Albumin 4.5 g/dL (3.2-4.8) Calcium Level 10.1 mg/dL (8.7-10.4) Total Protein 6.9 g/dL (5.7-8.2) LFT Test 07/21/24 05:27 Alanine Aminotransferase (ALT) 16 U/L (7-40) Alkaline Phosphatase 90 U/L (46-116) Aspartate Amino Transferase (AST) 12 U/L (13-40) L Total Bilirubin 0.4 mg/dL (0.2-1.0) Urinalysis Test 07/20/24 08:05 Urine Color Colorless (Yellow) Urine Clarity Clear (Clear) Urine pH 6.5 (5.0-9.0) Urine Specific [place] 1.003 (1.001-1.035) Urine Protein Negative (Negative) Urine Ketones Negative (Negative) Urine Blood Negative /uL (Negative) Urine Nitrite Negative (Negative) Urine Bilirubin Negative (Negative) Urine Urobilinogen Normal mg/dL (Negative) Urine Leukocyte Esterase Negative /uL (Negative) Urine RBC 1 /hpf (0 - 4) Urine Microscopic WBC /HPF (0-5) Urine Squamous Epithelial Cells Few /hpf (<5) Urine Bacteria Few /hpf (None Seen) H Urine Glucose Normal mg/dL (Normal) Microbiology Microbiology Date/Time Source Procedure Growth Status 07/20/24 08:05 Urine - [place] Urine Culture - Preliminary Resulted Assessment/Plan Assessment/Plan Acute chest pain, Shortness of breath, Seizures, COPD, CHF, Hypothyroidism, Diabetes, Troponins negative cardiology on consult echo ordered continue home medications Plan discussed with: Patient Date of Service: July 21, 2024 Billing Provider: MADIHA WHITE MD Common Visit Codes: [id number] INP/OBS CARE(HIGH) MADIHA WHITE MD July 21, 2024 18:57
[2024-07-21] MEDS ORDERED: LORazepam 2MG/ML-1ML VIAL ONE (20:05)
[2024-07-21] MEDS ORDERED: LORazepam 2MG/ML-1ML VIAL IV PRN ×2 (20:15)
[2024-07-21 20:42] LABS: Alanine Aminotransferase 20 U/L (7-40); Alkaline Phosphatase 98 U/L (46-116); Anion Gap 9 (5-15); Aspartate Aminotransferase 15 U/L (13-40); Blood Urea Nitrogen 10 mg/dL (9-23); Calcium 10.3 mg/dL (8.7-10.4); Carbon Dioxide 27 mmol/L (20-31); Chloride 102 mmol/L (98-107); Glucose 105 mg/dL (74-106); Potassium 4.1 mmol/L (3.5-5.1); Sodium 138 mmol/L (136-145); Total Protein 7.6 g/dL (5.7-8.2)
[2024-07-21 20:43] LABS: Bilirubin, Total 0.5 mg/dL (0.2-1.0)
--- NOTE | 2024-07-21 20:49 | DVH ---
EXAM: CT HEAD WITHOUT CONTRAST INDICATION: SEIZURE TECHNIQUE: CT of the head without intravenous contrast. Radiation Dose Information: CT Dose: CTDI volume is 63.29 mGy. Dose-length product is 1014.36 mGy*cm The dose indicators for CT are the volume Computed Tomography (CT) Dose Index (CTDIvol) and the Dose Length Product (DLP), and are measured in units of mGy and mGy-cm, respectively. These indicators are not patient dose, but values generated from the CT scanner acquisition factors. The report includes radiation exposure data for exposures received during this examination. COMPARISON: CT HEAD WITHOUT CONTRAST on DOS: 08/08/22, CT HEAD WITHOUT CONTRAST on DOS: 07/15/22, HEAD WITHOUT CONTRAST on DOS: 01/27/22 FINDINGS: There is no evidence of acute intracranial hemorrhage, extra-axial collection, mass effect, midline s hift, herniation or hydrocephalus. The ventricles, sulci and cisterns are age appropriate. The ulloa-white differentiation is intact. Patchy periventricular and subcortical white matter hypoattenuation is nonspecific but may be related to small vessel ischemic disease. Air-fluid level right maxillary sinus and mastoid air cells are clear. The surrounding soft tissues and osseous structures are unremarkable. IMPRESSION: 1. No acute intracranial abnormality.
[2024-07-21 20:50] LABS: Base Excess 1.4 mmol/L (-2.0-3.0)
--- NOTE | 2024-07-21 20:50 | DVH ---
CHEST RADIOGRAPH Indication: SEIZURE Technique: Single frontal view of the chest was obtained Comparison: XY CHEST PORTABLE on DOS: 07/20/24, XY CHEST PORTABLE on DOS: 07/12/23, XY CHEST XRAY 1 VIE W on DOS: 08/08/22 FINDINGS: Lines and Tubes: None Lungs: No focal consolidation. Pleura: No effusion. No pneumothorax. Cardiomediastinal contours: Unremarkable Bones: No acute osseous abnormality. IMPRESSION: 1. No acute cardiopulmonary disease.
[2024-07-21 20:53] LABS: Albumin 4.9 g/dL (3.2-4.8)
[2024-07-21] MEDS: levETIRAcetam 1500 mg/100ml 100 ML IV SCH (21:53)
[2024-07-22] VITALS (10 sets, daily range): BP systolic 105–125; BP diastolic 60–74; PULSE 68–81; RESP 16–20; TEMP 97.1–98.4; O2SAT 97–100
[2024-07-22 06:00] LABS: Chloride 105 mmol/L (98-107); Potassium 4.2 mmol/L (3.5-5.1); Sodium 141 mmol/L (136-145)
[2024-07-22 06:01] LABS: Anion Gap 8 (5-15); Calcium 9.9 mg/dL (8.7-10.4); Carbon Dioxide 28 mmol/L (20-31)
[2024-07-22 06:03] LABS: Basophils # (auto) 0 10 ^3/uL (0-0.2); Basophils % (auto) 0.7 % (0.0-2.0); Eosinophils # (auto) 0.1 10 ^3/uL (0-0.8); Hematocrit 39.9 % (36.0-46.0); Hemoglobin 13.3 g/dL (12.2-16.2); Lymphocytes # (auto) 2.3 10 ^3/uL (0.4-5.4); Lymphocytes % (auto) 31.1 % (10.0-50.0); Mean Corpuscular Hemoglobin 31.7 pg (28.0-32.0); Mean Corpuscular Hgb Conc. 33.3 g/dL (32.0-36.0); Mean Corpuscular Volume 95.1 fL (80.0-100.0); Monocytes # (auto) 0.4 10 ^3/uL (0-1.3); Neutrophils # (auto) 4.4 10 ^3/uL (1.6-8.6); Neutrophils % (auto) 60.2 % (37.0-80.0); Nucleated Red Blood Cells % 0.2 %; Platelet Count (auto) 208 10^3/uL (140-450); White Blood Cell 7.3 10^3/uL (4.4-10.8)
[2024-07-22 06:06] LABS: BUN/Creatinine Ratio 16.7 (10.0-20.0); Blood Urea Nitrogen 12 mg/dL (9-23); Triglycerides 139 mg/dL (< 150)
[2024-07-22 06:07] LABS: LDL Cholesterol 93 mg/dL (< 100); Magnesium 1.9 mg/dL (1.6-2.6)
[2024-07-22 06:08] LABS: Cholesterol 160 mg/dL (< 200); HDL Cholesterol 45 mg/dL (40-59)
[2024-07-22 06:14] LABS: Glucose 112 mg/dL (74-106)
--- NOTE | 2024-07-22 06:57 | DVHINCON2 ---
Date of service: July 22, 2024 History of Present Illness HPI Patient is a 69-year-old female who presented to the hospital from [facility] [facility] for right-sided chest discomfort which was pleuritic and positional. Cardiology is involved for cardiac catheterization with self-care. Patient is known to our practice from previous admissions and before. At the time of evaluation, the patient denies any chest discomfort. Home Meds Active Scripts Pramipexole Dihydrochloride Mo (MIRAPEX TABLET) 0.25 Mg Tb, 0.25 MG PO HS for 30 Days, #30 TAB Prov:ZACARIAS MAYA MD 04/13/19 Levetiracetam (Keppra) 500 Mg Tab, 2 TAB PO BID for 30 Days, #120 TAB 0 Refills Prov:ZACARIAS MAYA MD 04/13/19 Reported Medications Pramipexole Dihydrochloride (Pramipexole Dihydrochlori) 0.375 Mg Tab, 0.375 MG PO HS, TAB 07/20/24 Zolpidem Tartrate (Zolpidem Tartrate) 5 Mg Tab, 1 TAB PO QHSP PRN 07/20/24 Atorvastatin Calcium (ATORVASTATIN CALCIUM) 40 Mg Tab, 1 TAB PO HS 07/20/24 Oxcarbazepine (OXTELLAR XR) 300 Mg Tab, 300 MG PO BID 07/20/24 Ferrous Sulfate (FERROUS SULFATE) 325 Mg Tb, 1 TAB PO BID, #60 TAB 3 Refills 07/21/21 Ascorbic Acid (VITAMIN C TABLET) 500 Mg Tb, 1 TAB PO BID, #60 TAB 07/21/21 Cholecalciferol (VITAMIN D3) 1,000 Unit Chw, 1000 UNIT PO DAILY, TAB.CHEW 07/21/21 Mirabegron Base (MYRBETRIQ) 25 Mg Tab, 25 MG PO HS, TAB 07/21/21 Lacosamide (Vimpat) 100 Mg Tab, 100 MG PO BID, TAB 07/21/21 Metformin Hydrochloride (Metformin Hcl) 500 Mg Tab, 500 MG PO DAILY, TAB 07/21/21 Potassium Chloride (Potassium Chloride ER) 20 Meq Tab, 20 MEQ PO DAILY, TAB 07/21/21 Pantoprazole Sodium Sesquihydr (Protonix) 40 Mg Tab, 40 MG PO DAILY, #30 TAB 07/21/21 Isosorbide Mononitrate (Isosorbide Mononitrate Er) 30 Mg Tab, 10 MG PO BID, #30 TAB 5 Refills 07/21/21 Amlodipine Besylate (NORVASC TABLET) 5 Mg Tb, 10 MG PO DAILY, TAB 07/21/21 Aripiprazole (Abilify) 2 Mg Tab, 10 MG PO BID, TAB 07/21/21 Morphine Sulfate (Morphine Sulfate) 15 Mg Tab, PO, #120 TAB 04/10/19 Furosemide (Lasix) 20 Mg Tb, PO DAILY, #90 TAB 1 Refill 04/10/19 Olanzapine (OLANZAPINE) 10 Mg Tab, 10 MG PO HS, TAB 03/14/15 Benazepril Hcl (Benazepril Hcl) 10 Mg Tab, 10 MG PO DAILY, TAB 03/14/15 Citalopram Hydrobromide (CeleXA TABLET) 20 Mg Tb, 1 TAB PO DAILY, #30 TAB 5 Refills 03/14/15 Levothyroxine Sodium (SYNTHROID TABLET) 50 Mcg Tb, 25 MCG PO DAILY 03/14/15 Risperidone (RisperDAL TABLET) 1 Mg Tb, 1 TAB PO BID, #30 TAB 1 Refill 03/14/15 Discontinued Reported Medications Trazodone HCl (Trazodone Hydrochloride) 50 Mg Tab, 50 MG PO, TAB 01/28/22 Oxcarbazepine (Trileptal) 150 Mg Tab, 150 MG PO TID, TAB 03/15/15 Rosuvastatin Calcium (Crestor) 10 Mg Tab, 10 MG PO DAILY, #30 03/14/15 Discontinued Scripts Ciprofloxacin Hcl (Cipro) 500 Mg Tab, 1 TAB PO BID, #14 TAB Prov:ANN MARIEFUNMILAYO M LINTER SAW SHARPENER 01/31/22 Past Medical History Others Past medical history includes seizure disorder, hypertension, hypothyroidism, anxiety disorder, asthma/COPD, diastolic heart failure, dementia, diabetes mellitus, 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 Has had right knee surgery. Has had carotid plaques. Patient Family History: Family history: Hypertension G8 FATHER Smoker: No Hx (Negative) Alocohol: None Lives with: Assisted Review of Systems Constitutional: No symptom reported Ears, Nose, & Throat: No symptom reported Cardiovascular: Chest Pain All Other Systems Fourteen point review of system was performed. Relevant findings as per above and as per HPI. Otherwise negative. H&P Exam Vital Signs Vital Signs Date Time Temp Pulse Resp B/P (MAP) Pulse Ox O2 Delivery O2 Flow Rate FiO2 07/22/24 05:00 97.1 71 18 110/64 (79) 100 97.1 07/21/24 20:32 Nasal Cannula* 4 36 General Appeara: Well developed, Obese Head Exam: Normal inspection Eye Exam: bilateral eye PERRL Mouth: Normal Inspection Pulmonary/Respiratory: Lungs clear Cardiovascular/Chest: Normal inspection, Regular rate Peripheral Pulses: 2+ carotid (R), 2+ carotid (L), 2+ femoral (R), 2+ femoral (L), 2+ dorsalis pedis (R), 2+ dorsalis pedis (L), 2+ Radial (R), 2+ Radial (L) Abdominal Exam: Normal bowel sounds, Soft Neuro/Mental St: Alert, Oriented Eye contact/ Speech: Cooperative Labs/Xrays Labs Test 07/22/24 06:10 07/22/24 05:21 07/21/24 20:12 07/21/24 20:10 Range/Units POC Glucose 109 H 70-106 mg/dl White Blood Count 7.3 4.4-10.8 10^3/uL Red Blood Count 4.20 4.0-5.20 10^6/uL Hemoglobin 13.3 12.2-16.2 g/dL Hematocrit 39.9 36.0-46.0 % Mean Corpuscular Volume 95.1 80.0-100.0 fL Mean Corpuscular Hemoglobin 31.7 28.0-32.0 pg Mean Corpuscular Hemoglobin Concent 33.3 32.0-36.0 g/dL Red Cell Distribution Width 13.0 11.8-14.3 % Platelet Count 208 140-450 10^3/uL Mean Platelet Volume 6.4 L 6.9-10.8 fL Neutrophils (%) (Auto) 60.2 37.0-80.0 % Lymphocytes (%) (Auto) 31.1 10.0-50.0 % Monocytes (%) (Auto) 6.0 0.0-12.0 % Eosinophils (%) (Auto) 2.0 0.0-7.0 % Basophils (%) (Auto) 0.7 0.0-2.0 % Neutrophils # (Auto) 4.4 1.6-8.6 10 ^3/uL Lymphocytes # (Auto) 2.3 0.4-5.4 10 ^3/uL Monocytes # (Auto) 0.4 0-1.3 10 ^3/uL Eosinophils # (Auto) 0.1 0-0.8 10 ^3/uL Basophils # (Auto) 0 0-0.2 10 ^3/uL Nucleated Red Blood Cells 0.2 % Sodium Level 141 136-145 mmol/L Potassium Level 4.2 3.5-5.1 mmol/L Chloride Level 105 98-107 mmol/L Carbon Dioxide Level 28 20-31 mmol/L Anion Gap 8 5-15 Blood Urea Nitrogen 12 9-23 mg/dL Creatinine 0.72 0.550-1.02 mg/dL Glomerular Filtration Rate Calc 92 >90 mL/min BUN/Creatinine Ratio 16.7 10.0-20.0 Serum Glucose 112 H 74-106 mg/dL Calcium Level 9.9 8.7-10.4 mg/dL Magnesium Level 1.9 1.6-2.6 mg/dL Triglycerides Level 139 < 150 mg/dL Cholesterol Level 160 < 200 mg/dL LDL Cholesterol 93 < 100 mg/dL HDL Cholesterol 45 40-59 mg/dL Thyroid Stimulating Hormone (TSH) 1.85 0.55-4.78 uIU/mL Blood Gas Specimen Type Arterial Blood Gas Sample Site Left radial Blood Gas Patient Temperature 37.0 Arterial Blood Date Drawn [id number] Arterial Blood pH 7.437 7.350-7.450 Arterial Blood Partial Pressure CO2 38.7 32.0-45.0 mmHg Arterial Blood Partial Pressure O2 140.9 H 83.0-108.0 mmHg Arterial Blood HCO3 25.5 21.0-28.0 mmol/L Arterial Blood Oxygen Saturation 98.5 H 94.0-98.0 % Arterial Blood Base Excess 1.4 -2.0-3.0 mmol/L Arterial Blood Oxyhemoglobin 97.4 94.0-98.0 % Arterial Blood Carboxyhemoglobin 0.8 0.5-1.5 % Arterial Blood Methemoglobin 0.3 0.0-1.5 % Mack Test Yes Blood Gas Total Hemoglobin 13.80 12.0-16.0 g/dL Blood Gas Liter Flow 8.00 Blood Gas Modality Mask - simple Blood Gas Spontaneous Rate 20 FiO2 % 50.0 Total Bilirubin 0.5 0.2-1.0 mg/dL Aspartate Amino Transferase (AST) 15 13-40 U/L Alanine Aminotransferase (ALT) 20 7-40 U/L Alkaline Phosphatase 98 46-116 U/L Creatine Kinase 47 34-145 U/L Troponin I High Sensitivity < 3 L </=34 ng/L Total Protein 7.6 5.7-8.2 g/dL Albumin 4.9 H 3.2-4.8 g/dL Test 07/20/24 08:05 07/19/24 00:13 Range/Units Urine Color Colorless Yellow Urine Clarity Clear Clear Urine pH 6.5 5.0-9.0 Urine Specific [place] 1.003 1.001-1.035 Urine Protein Negative Negative Urine Ketones Negative Negative Urine Blood Negative Negative /uL Urine Nitrite Negative Negative Urine Bilirubin Negative Negative Urine Urobilinogen Normal Negative mg/dL Urine Leukocyte Esterase Negative Negative /uL Urine RBC 1 0 - 4 /hpf Urine Microscopic WBC 0-5 /HPF Urine Squamous Epithelial Cells Few <5 /hpf Urine Bacteria Few H None Seen /hpf Urine Glucose Normal Normal mg/dL B-Type Natriuretic Peptide 36.83 0-100 pg/mL Microbiology Date/Time Source Procedure Growth Status 07/20/24 08:05 Urine - [place] Urine Culture - Preliminary Resulted Assessment/Plan Plan Patient is a 69-year-old female who presented to the hospital from [place] [facility] for right-sided chest discomfort which was pleuritic and positional. Cardiology is involved for cardiac catheterization with self-care. Patient is known to our practice from previous admissions and before. At the time of evaluation, the patient denies any chest discomfort. Lying in bed flat and not in acute distress. No JVD. Mucosa is pink and wet. Not using accessory muscles of breathing. Lungs are clear to auscultation. Cardiac: Regular, no thrill/gallop. Abdomen is soft. There is no peripheral edema. Dorsalis pedis is 2+ bilateral. 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 Has had right knee surgery. Has had carotid plaques. Does have baseline chronic respiratory failure and is on home oxygen. Echocardiogram of June 2023 revealed ejection fraction of 60% with no significant valvular disease She is wheelchair-bound. She is ex-smoker. TSH: 1.85 BNP: 36.83 Troponin (high sensitive) Chest x-ray revealed: IMPRESSION: No acute disease. Mild cardiomegaly. No change compared to the prior chest x-ray from June 2023. CT of the head revealed: IMPRESSION: 1. No acute intracranial abnormality. Repeat chest x-ray revealed: IMPRESSION: 1. No acute cardiopulmonary disease. EKG revealed sinus rhythm with no specific ST-T changes Tele reveals sinus rhythm Echocardiogram revealed: Left ventricle: Borderline concentric left ventricular hypertrophy was seen. LVEF was 60-65%. There was no gross wall motion abn ormality. Right ventricle was normal-sized with normal systolic function. Both atria were normal-sized. Aortic valve was not well visualized. There was no aortic insufficiency/stenosis. There was no mitral/tricuspid regurgitation. Pulmonary valve was not well visualized. There was small pericardial effusion. There was no echocardiographic evidence for tamponade. IVC was not well visualized. Patient is a 69-year-old female who presented with atypical right-sided chest discomfort. Serial high sensitive troponin has been negative and EKG has been nonrevealing. Acute coronary syndrome is not considered at this point. There is no indication for ischemic workup at this point. Atypical chest pain Chronic respiratory failure on home oxygen COPD exacerbation Seizure disorder Hypertension Hypothyroidism Cerebral palsy Diabetes mellitus Dementia Diastolic heart failure, chronic Cardiac suggestion for management: Managed on telemetry Follow-up electrolytes and kidney function tests and correct abnormalities No indication for any ischemic workup at this point Evaluation and management of respiratory failure as per primary team/Pulmonary Further evaluation and management depends on the above and clinical course Thank you for consultation A total of 75 minutes was spent reviewing the patient record, examining the patient, making a diagnostic and therapeutic plan, discussing this plan with medical personnel, following up on diagnostic studies and following the patient for clinical stability excluding any and all procedures. At least 50% of this time was spent in direct, [id number] contact. Thank you for allowing me to participate in this patient's care. Further recommendations will depend on patient's clinical course. Please do not hesitate to contact me if you have any questions or concerns. This medical document was created using electronic medical record system with [employer] dictation system. Although this document has been carefully reviewed, there may still be some phonetic and typographical errors. These areas are purely typographical due to the imperfection of the software programs, and do not reflect any compromise in the patient's medical care. Plan discussed with: Patient, Other (nurse) NOVA CARRASCO MD July 22, 2024 06:57
--- NOTE | 2024-07-22 07:42 | RESUS ---
CODE ASSIST ASSESSSMENT Initial Information Code Assist Date: July 22, 2024 Code Assist Time: 20:02 Location of Arrest: [facility] Room # 244-[address] PIERRE Time Notified: 20:02 Time PMD returned call: 20:02 Crash Cart Opened and Supplies: No Situation Staff concerned/worried, speci: Seizures Situation comment: Patient found shaking with arms contracted by nursing student. Steel Pan Form Placing Supervisor Guevara informed, code assist called. Received orders from resident Jazmín. Have not received report on patient. Background Background: 69-year-old female presents with a chief complaint of tachypnea and chest pain. Patient states that her pain started on her right side, is now on her left side and is sharp. Patient is on oxygen at this time. Patient mentions that it hurts to breathe especially on deep inspiration. Patient denies any nausea, vomiting, diarrhea, or abdomen pain. Assessment Temperature (Fahrenheit): 97.1 Blood Pressure Systolic: 110 Blood Pressure Diastolic: 64 Respiratory Rate: 18 O2 Sat by Pulse Oximetry: 100 Assessment comment: PT INITIALLY POST-ICTAL WITH RIGHT SIDED STIFFNESS, BILATERAL BREATH SOUNDS DIMINISHED, PLACED ON NEBULIZER BY RT. 2013, PT BACK TO BASELINE AAOX4 JANES. Recommendations/Interventions Medications and Responses : Medication Time: 20:08 ADULT Medications Given: Ativan 1 mg IV MRx1 Route of Administration: IV Heart Rate: 0 Blood Pressure Systolic: 120 Blood Pressure Diastolic: 62 Respiratory Rate: 20 O2 Sat by Pulse Oximetry: 98 Procedures: Accu check, ABG, CXR Portable, CMP, Troponin, O2 Mask/NC Outcome Outcome: Problem Resolved Team Members Team Members ROSCOE BRENNAN RN HS, CARLINE CHARGE, RISA GUZMAN ICU CHARGE, KARY HORTON RT, ROSCOE TIRADO July 22, 2024 07:42
--- NOTE | 2024-07-22 08:29 | ECG ---
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
--- NOTE | 2024-07-22 10:42 | DVHPN2 ---
Progress Note - Dictate Date Seen: July 22, 2024 Medical Necessity Reason Pt with a Central, PICC or Fol: No vital signs Vital Sign Date Time Temp Pulse Resp B/P (MAP) Pulse Ox O2 Delivery O2 Flow Rate FiO2 07/22/24 09:02 131/66 07/22/24 09:00 97.8 81 17 100 97.8 07/22/24 07:36 Nasal Cannula* 4 36 Total Intake and Output 07/21/24 07/21/24 07/22/24 15:00 23:00 07:00 Intake Total 850 ml 120 ml Output Total 950 ml 420 ml Balance -100 ml -300 ml medications Current Medications Medications Dose Ordered Sig/Clari Route Start Time Stop Time Status Last Admin Dose Admin Sodium Chloride 10 ml Q8HR IV 07/20/24 14:00 07/22/24 06:20 10 ML Ondansetron HCl 4 mg Q4HP PRN IV 07/20/24 11:30 07/21/24 18:43 4 MG Docusate Sodium 100 mg BIDPRN PRN PO 07/20/24 11:30 Morphine Sulfate 2 mg Q4HPRN PRN IV 07/20/24 11:30 07/21/24 18:45 2 MG Nitroglycerin 0.4 mg Q5MINP PRN SL 07/20/24 11:30 Morphine Sulfate 2 mg Q30M PRN IV 07/20/24 11:30 Albuterol 2.5 mg Q4HPRN PRN NEB 07/20/24 11:30 07/21/24 20:09 2.5 MG Ipratropium [place] 0.5 mg Q4HPRN PRN NEB 07/20/24 11:30 07/21/24 20:08 0.5 MG Diagnostic Test (Pha) 1 strip ACHS 07/20/24 17:00 07/22/24 06:20 1 STRIP Insulin Human Regular HS SC 07/20/24 22:00 Insulin Human Regular AC SC 07/20/24 17:00 07/21/24 17:14 2 UNITS Dextrose 50 ml UD PRN IV 07/20/24 11:45 Amlodipine Besylate 10 mg DAILY PO 07/21/24 10:00 07/22/24 09:02 10 MG Citalopram Hydrobromide 20 mg DAILY PO 07/21/24 10:00 07/22/24 09:00 20 MG Furosemide 20 mg DAILY PO 07/21/24 10:00 07/22/24 09:01 20 MG Levothyroxine Sodium 25 mcg DAILY PO 07/21/24 10:00 07/22/24 08:59 25 MCG Pantoprazole Sodium 40 mg DAILY PO 07/21/24 10:00 07/22/24 08:59 40 MG Risperidone 1 mg BID PO 07/20/24 22:00 07/22/24 08:59 1 MG Isosorbide Mononitrate 10 mg BID PO 07/20/24 22:00 07/22/24 09:01 10 MG Morphine Sulfate 15 mg Q8HR PO 07/20/24 22:00 07/22/24 06:17 15 MG Ascorbic Acid 500 mg BID PO 07/20/24 22:00 07/22/24 08:59 500 MG Ferrous Sulfate 325 mg BID PO 07/20/24 22:00 07/22/24 09:00 325 MG Cholecalciferol 1,000 unit DAILY PO 07/21/24 10:00 07/22/24 08:59 1,000 UNIT Patient Own Medication 100 mg BID PO 07/20/24 22:00 UNV Zolpidem Tartrate 5 mg QHSP PRN PO 07/20/24 15:15 Atorvastatin Calcium 40 mg HS PO 07/20/24 22:00 07/21/24 21:54 40 MG Oxcarbazepine 300 mg BID PO 07/20/24 22:00 Hold Pramipexole Dihydrochloride 0.375 mg HS PO 07/20/24 22:00 07/21/24 21:55 0.375 MG Lacosamide 100 mg BID PO 07/20/24 22:00 07/22/24 08:59 100 MG Enoxaparin Sodium 40 mg DAILY SC 07/21/24 12:30 07/22/24 08:58 40 MG Lorazepam 1 mg Q5MINP PRN IV 07/21/24 20:15 Lorazepam 1 mg Q2HP PRN IV 07/21/24 20:15 Levetiracetam 100 ml @ 400 mls/hr Q12H IV 07/21/24 20:30 07/22/24 08:58 400 MLS/HR Ceftriaxone Sodium 50 ml @ 100 mls/hr DAILY@09 IV 07/22/24 10:45 UNV objective General Appearance: alert, no distress HEENT: EOMI, PERRLA, normal external inspect of ears, no icterus, no nasal drainage Neck: no carotid bruit, no jugular venous distention (JVD), no lymphadenopathy Chest: normal thorax Respiratory: clear to auscultation, normal air movement Cardiovascular: regular rate and rhythm, no diastolic murmur, no jugular venous distention (JVD), no rub, no systolic murmur Abdominal: soft, no hepatomegaly, no mass, no splenomegaly, no tenderness Genitourinary: grossly normal external Musculoskeletal: no joint tenderness, no swelling Extremities: normal pulses, no calf tenderness, no clubbing, no cyanosis, no edema Skin: no bruising, no jaundice, no rash Neurological: alert, No focal deficit laboratory and microbiology Laboratory Tests 07/22/24 05:21 Test 07/22/24 05:21 Range/Units Serum Glucose 112 H 74-106 mg/dL Problem List 1. Unstable angina Monitor, Cardiology consult, monitor EKG, trend troponin, DVT prophylaxis 2. COPD Monitor, restart home medications 3. Hypothyroid Monitor, PPI 4. Dementia Monitor 5. Epilepsy Monitor, seizure precautions, antiepileptics 6. DM2 with hyperglycemia Monitor, insulin SS 7. 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 Objective: Patient was admitted for generalized malaise and fever. Patient states her urine was foul-smelling. Patient was started on antibiotics for possible UTI. Patient had complaints of chest pain. Patient was seen by cardiology. Troponin levels are negative. Patient states she had a breakthrough seizure last week on Saturday. 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 Plan: Continue current treatment. Monitor daily labs, and continue antibiotics for possible UTI. Plan discussed with: Patient, Other FUNMILAYO JESUS NP July 22, 2024 10:42
[2024-07-22] MEDS: cefTRIAXone 1GM/50ML D5W 50 ML IV SCH (10:45)
[2024-07-22] MEDS: MORPHINE SULFATE 4 MG/ML SYR/VIAL IV PRN (11:23)
--- NOTE | 2024-07-22 14:14 | DVHSR ---
APPROVED REPORT EXAM: Two-dimensional and M-mode echocardiogram with Doppler and color Doppler. Blood Pressure: 110/64 mmHg INDICATION Chest Pain RISK FACTORS Height: 5'6", Weight: 184 DIMENSIONS LVDd4.0 (3.8-5.7cm)LA (2D)3.1 (1.9-4.0cm)Aortic Root2.5 (2.0-3.7cm) LVDs2.7 (2.5-4.0cm)LA (MM) (1.9-4.0cm)Aortic Cusp Exc (1.5-2.0cm) EF (%) 60.0 (55-70%)Rt. Atrium2.7 (1.9-4.0cm)Asc. Aorta cm Mitral Valve MitralMitral Stenosis E wave0.71m/sMV Mean GR.mmHg A wave0.90m/sMV Peak GR.mmHg E/A ratio0.82D MVAcm2 DECEL [id number] 1/2 [place] Aortic Valve Aortic ValveAortic Stenosis V11.31m/Cathi Mean GR.5mmHg V21.53m/Cathi Peak GR.9mmHg LVOT Diameter2.1 (1.8-2.4cm)Doppler AVA2.96cm2 Other Information Quality : Technically LimitedRhythm : Technically limited study due to body habitus and patient position. Conclusion Left ventricle: Borderline concentric left ventricular hypertrophy was seen. LVEF was 60-65%. Ther e was no gross wall motion abnormality. Right ventricle was normal-sized with normal systolic function. Both atria were normal-sized. Aortic valve was not well visualized. There was no aortic insufficiency/stenosis. There was no mitr al/tricuspid regurgitation. Pulmonary valve was not well visualized. There was small pericardial effusion. There was no echocardiographic evidence for tamponade. IVC was not well visualized.
[2024-07-22] MEDS: ZOLPIDEM TARTRATE 5 MG TAB PO PRN (23:44)
[2024-07-23] VITALS (13 sets, daily range): BP systolic 92–127; BP diastolic 53–66; PULSE 65–81; RESP 14–19; TEMP 97.8–98.5; O2SAT 96–99
[2024-07-23] MEDS: LEVOTHYROXINE SODIUM 25 MCG TAB PO SCH (06:18)
--- NOTE | 2024-07-23 09:15 | DVHPN2 ---
Progress Note - Dictate Date Seen: July 23, 2024 Medical Necessity Reason Pt with a Central, PICC or Fol: No vital signs Vital Sign Date Time Temp Pulse Resp B/P (MAP) Pulse Ox O2 Delivery O2 Flow Rate FiO2 07/23/24 08:02 99 Nasal Cannula 4.0 07/23/24 08:02 36 07/23/24 08:02 69 16 07/23/24 05:00 98.5 109/62 (78) 98.5 Total Intake and Output 07/22/24 07/22/24 07/23/24 15:00 23:00 07:00 Intake Total 150 ml 800 ml 840 ml Output Total 750 ml 600 ml Balance 150 ml 50 ml 240 ml medications Current Medications Medications Dose Ordered Sig/Clari Route Start Time Stop Time Status Last Admin Dose Admin Sodium Chloride 10 ml Q8HR IV 07/20/24 14:00 07/23/24 06:18 10 ML Ondansetron HCl 4 mg Q4HP PRN IV 07/20/24 11:30 07/21/24 18:43 4 MG Docusate Sodium 100 mg BIDPRN PRN PO 07/20/24 11:30 Nitroglycerin 0.4 mg Q5MINP PRN SL 07/20/24 11:30 Morphine Sulfate 2 mg Q30M PRN IV 07/20/24 11:30 Albuterol 2.5 mg Q4HPRN PRN NEB 07/20/24 11:30 07/23/24 08:02 2.5 MG Ipratropium [place] 0.5 mg Q4HPRN PRN NEB 07/20/24 11:30 07/23/24 08:02 0.5 MG Diagnostic Test (Pha) 1 strip ACHS 07/20/24 17:00 07/23/24 06:19 1 STRIP Insulin Human Regular HS SC 07/20/24 22:00 Insulin Human Regular AC SC 07/20/24 17:00 07/22/24 12:00 2 UNITS Dextrose 50 ml UD PRN IV 07/20/24 11:45 Amlodipine Besylate 10 mg DAILY PO 07/21/24 10:00 07/22/24 09:02 10 MG Citalopram Hydrobromide 20 mg DAILY PO 07/21/24 10:00 07/22/24 09:00 20 MG Furosemide 20 mg DAILY PO 07/21/24 10:00 07/22/24 09:01 20 MG Pantoprazole Sodium 40 mg DAILY PO 07/21/24 10:00 07/22/24 08:59 40 MG Risperidone 1 mg BID PO 07/20/24 22:00 07/22/24 22:11 1 MG Isosorbide Mononitrate 10 mg BID PO 07/20/24 22:00 07/22/24 22:23 10 MG Morphine Sulfate 15 mg Q8HR PO 07/20/24 22:00 07/23/24 06:18 15 MG Ascorbic Acid 500 mg BID PO 07/20/24 22:00 07/22/24 22:11 500 MG Ferrous Sulfate 325 mg BID PO 07/20/24 22:00 07/22/24 22:01 325 MG Cholecalciferol 1,000 unit DAILY PO 07/21/24 10:00 07/22/24 08:59 1,000 UNIT Patient Own Medication 100 mg BID PO 07/20/24 22:00 UNV Zolpidem Tartrate 5 mg QHSP PRN PO 07/20/24 15:15 07/22/24 23:44 5 MG Atorvastatin Calcium 40 mg HS PO 07/20/24 22:00 07/22/24 22:01 40 MG Oxcarbazepine 300 mg BID PO 07/20/24 22:00 Hold Pramipexole Dihydrochloride 0.375 mg HS PO 07/20/24 22:00 07/22/24 22:02 0.375 MG Lacosamide 100 mg BID PO 07/20/24 22:00 07/22/24 22:03 100 MG Enoxaparin Sodium 40 mg DAILY SC 07/21/24 12:30 07/22/24 08:58 40 MG Lorazepam 1 mg Q5MINP PRN IV 07/21/24 20:15 Lorazepam 1 mg Q2HP PRN IV 07/21/24 20:15 Levetiracetam 100 ml @ 400 mls/hr Q12H IV 07/21/24 20:30 07/22/24 22:00 400 MLS/HR Ceftriaxone Sodium 50 ml @ 100 mls/hr DAILY@09 IV 07/22/24 10:45 07/22/24 10:45 100 MLS/HR Morphine Sulfate 2 mg Q4HPRN PRN IV 07/22/24 11:15 07/22/24 16:38 2 MG Levothyroxine Sodium 25 mcg QAM PO 07/23/24 07:00 07/23/24 06:18 25 MCG objective General Appearance: alert, no distress HEENT: EOMI, PERRLA, normal external inspect of ears, no icterus, no nasal drainage Neck: no carotid bruit, no jugular venous distention (JVD), no lymphadenopathy Chest: normal thorax Respiratory: clear to auscultation, normal air movement Cardiovascular: regular rate and rhythm, no diastolic murmur, no jugular venous distention (JVD), no rub, no systolic murmur Abdominal: soft, no hepatomegaly, no mass, no splenomegaly, no tenderness Genitourinary: grossly normal external Musculoskeletal: no joint tenderness, no swelling Extremities: normal pulses, no calf tenderness, no clubbing, no cyanosis, no edema Skin: no bruising, no jaundice, no rash Neurological: alert, No focal deficit laboratory and microbiology Laboratory Tests 07/22/24 05:21 Test 07/22/24 05:21 Range/Units Serum Glucose 112 H 74-106 mg/dL Problem List 1. Unstable angina Monitor, Cardiology consult, monitor EKG, trend troponin, DVT prophylaxis 2. COPD Monitor, restart home medications 3. Hypothyroid Monitor, PPI 4. Dementia Monitor 5. Epilepsy Monitor, seizure precautions, antiepileptics 6. DM2 with hyperglycemia Monitor, insulin SS 7. 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 Objective Patient states she is doing well. She states she wants to return to her assisted living facility. Patient is requesting that she has physical therapy and is requesting to live on the rehab side So that she can get stronger. No breakthrough seizures noted. Plan Continue current treatment. Consult drug abuse social worker. Consult physical therapy. DC planning to [facility] with rehab. Possible DC tomorrow. Plan discussed with: Patient, Other FUNMILAYO JESUS NP July 23, 2024 09:15
--- NOTE | 2024-07-23 10:58 | DVH ---
Procedure: CT CHEST WITHOUT CONTRAST Reason for study/Clinical History: cp Comparison Study: CT CHST AB PEL WO CON-NO IV/ORAL on DOS: 08/08/22 TECHNIQUE: Multidetector CT of the chest was performed from the lung apices to the upper abdomen with out the use of intravenous contract. Axial, coronal and sagittal multiplanar reformats were performed . Radiation Dose Information: CT Dose: CTDI volume is 11.5 mGy. Dose-length product is 412.87 mGy*cm The dose indicators for CT are the volume Computed Tomography (CT) Dose Index (CTDIvol) and the Dose Length Product (DLP), and are measured in units of mGy and mGy-cm, respectively. These indicators are not patient dose, but values generated from the CT scanner acquisition factors. The report includes radiation exposure data for exposures received during this examination. FINDINGS: Lower neck: Unremarkable. Lungs: No focal consolidation. No suspicious pulmonary nodule. Dependent subsegmental atelectasis. Heart/Vascular Structures: Cardiomegaly. Coronary artery calcifications. Vascular calcifications of t he aorta. Small pericardial effusion. Lymph Nodes: No adenopathy Pleura: No pleural effusion or significant pneumothorax. Musculoskeletal: No acute osseous abnormality. Degenerative changes of the spine. Soft tissues: Normal. Upper abdomen: Limited portions of the upper abdomen are unremarkable. IMPRESSION: No acute intrathoracic abnormality. Dependent subsegmental atelectasis. Radiation optimization: All CT scans at this facility use at least one of these dose optimization luis hniques: automated exposure control mA and/or kV adjustment per patient size (includes targeted exam s where dose is matched to clinical indication) or iterative reconstruction.
[2024-07-23] MEDS: DOCUSATE SOD 100 MG CAP PO PRN (20:10)
[2024-07-24] VITALS (7 sets, daily range): BP systolic 100–127; BP diastolic 57–68; PULSE 70–76; RESP 18–19; TEMP 98.1–98.7; O2SAT 96–100
--- NOTE | 2024-07-24 06:35 | DVHPN2 ---
Progress Note - Dictate Date Seen: July 24, 2024 Medical Necessity Reason Pt with a Central, PICC or Fol: No vital signs Vital Sign Date Time Temp Pulse Resp B/P (MAP) Pulse Ox O2 Delivery O2 Flow Rate FiO2 07/24/24 06:08 100 Nasal Cannula 3.0 07/24/24 06:08 32 07/24/24 05:00 98.6 70 19 101/57 (72) 98.6 Total Intake and Output 07/23/24 07/23/24 07/24/24 15:00 23:00 07:00 Intake Total 100 ml 1614 ml 1150 ml Output Total 1600 ml 1525 ml Balance 100 ml 14 ml -375 ml medications Current Medications Medications Dose Ordered Sig/Clari Route Start Time Stop Time Status Last Admin Dose Admin Sodium Chloride 10 ml Q8HR IV 07/20/24 14:00 07/24/24 05:20 10 ML Ondansetron HCl 4 mg Q4HP PRN IV 07/20/24 11:30 07/21/24 18:43 4 MG Docusate Sodium 100 mg BIDPRN PRN PO 07/20/24 11:30 07/23/24 20:10 100 MG Nitroglycerin 0.4 mg Q5MINP PRN SL 07/20/24 11:30 Morphine Sulfate 2 mg Q30M PRN IV 07/20/24 11:30 Albuterol 2.5 mg Q4HPRN PRN NEB 07/20/24 11:30 07/23/24 08:02 2.5 MG Ipratropium [place] 0.5 mg Q4HPRN PRN NEB 07/20/24 11:30 07/23/24 08:02 0.5 MG Diagnostic Test (Pha) 1 strip ACHS 07/20/24 17:00 07/24/24 06:26 1 STRIP Insulin Human Regular HS SC 07/20/24 22:00 07/23/24 22:11 2 UNITS Insulin Human Regular AC SC 07/20/24 17:00 07/22/24 12:00 2 UNITS Dextrose 50 ml UD PRN IV 07/20/24 11:45 Amlodipine Besylate 10 mg DAILY PO 07/21/24 10:00 07/23/24 09:43 10 MG Citalopram Hydrobromide 20 mg DAILY PO 07/21/24 10:00 07/23/24 09:43 20 MG Furosemide 20 mg DAILY PO 07/21/24 10:00 07/23/24 09:42 20 MG Pantoprazole Sodium 40 mg DAILY PO 07/21/24 10:00 07/23/24 09:43 40 MG Risperidone 1 mg BID PO 07/20/24 22:00 07/23/24 21:43 1 MG Isosorbide Mononitrate 10 mg BID PO 07/20/24 22:00 07/23/24 22:17 10 MG Morphine Sulfate 15 mg Q8HR PO 07/20/24 22:00 07/24/24 05:20 15 MG Ascorbic Acid 500 mg BID PO 07/20/24 22:00 07/23/24 21:43 500 MG Ferrous Sulfate 325 mg BID PO 07/20/24 22:00 07/23/24 21:43 325 MG Cholecalciferol 1,000 unit DAILY PO 07/21/24 10:00 07/23/24 09:43 1,000 UNIT Patient Own Medication 100 mg BID PO 07/20/24 22:00 UNV Zolpidem Tartrate 5 mg QHSP PRN PO 07/20/24 15:15 07/22/24 23:44 5 MG Atorvastatin Calcium 40 mg HS PO 07/20/24 22:00 07/23/24 21:44 40 MG Oxcarbazepine 300 mg BID PO 07/20/24 22:00 Hold Pramipexole Dihydrochloride 0.375 mg HS PO 07/20/24 22:00 07/23/24 21:42 0.375 MG Lacosamide 100 mg BID PO 07/20/24 22:00 07/23/24 21:44 100 MG Enoxaparin Sodium 40 mg DAILY SC 07/21/24 12:30 07/23/24 09:41 40 MG Lorazepam 1 mg Q5MINP PRN IV 07/21/24 20:15 Lorazepam 1 mg Q2HP PRN IV 07/21/24 20:15 Levetiracetam 100 ml @ 400 mls/hr Q12H IV 07/21/24 20:30 07/23/24 20:10 400 MLS/HR Ceftriaxone Sodium 50 ml @ 100 mls/hr DAILY@09 IV 07/22/24 10:45 07/23/24 09:40 100 MLS/HR Morphine Sulfate 2 mg Q4HPRN PRN IV 07/22/24 11:15 07/23/24 23:59 2 MG Levothyroxine Sodium 25 mcg QAM PO 07/23/24 07:00 07/24/24 06:26 25 MCG laboratory and microbiology Laboratory Tests 07/22/24 05:21 Test 07/22/24 05:21 Range/Units Serum Glucose 112 H 74-106 mg/dL Assessment/Plan Patient is a 69-year-old female who presented to the hospital from half-way for right-sided chest discomfort which was pleuritic and positional. Cardiology is involved for cardiac aspects of care. Patient is known to our practice from previous admissions and before. At the time of evaluation, the patient denies any chest discomfort. Lying in bed flat and not in acute distress. No JVD. Mucosa is pink and wet. Not using accessory muscles of breathing. Lungs are clear to auscultation. Cardiac: Regular, no thrill/gallop. Abdomen is soft. There is no peripheral edema. Dorsalis pedis is 2+ bilateral. 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 Has had right knee surgery. Has had carotid plaques. Does have baseline chronic respiratory failure and is on home oxygen. Echocardiogram of June 2023 revealed ejection fraction of 60% with no significant valvular disease She is wheelchair-bound. She is ex-smoker. TSH: 1.85 BNP: 36.83 Troponin (high sensitive): <3 - <3 - <3 Chest x-ray revealed: IMPRESSION: No acute disease. Mild cardiomegaly. No change compared to the prior chest x-ray from June 2023. CT of the head revealed: IMPRESSION: 1. No acute intracranial abnormality. Repeat chest x-ray revealed: IMPRESSION: 1. No acute cardiopulmonary disease. EKG revealed sinus rhythm with no specific ST-T changes Tele reveals sinus rhythm Echocardiogram revealed: Left ventricle: Borderline concentric left ventricular hypertrophy was seen. LVEF was 60-65%. There was no gross wall motion abnormality. Right ventricle was normal-sized with normal systolic function. Both atria were normal-sized. Aortic valve was not well visualized. There was no aortic insufficiency/stenosis. There was no mitral/tricuspid regurgitation. Pulmonary valve was not well visualized. There was small pericardial effusion. There was no echocardiographic evidence for tamponade. IVC was not well visualized. Patient is a 69-year-old female who presented with atypical right-sided chest discomfort. Serial high sensitive troponin has been negative and EKG has been nonrevealing. Acute coronary syndrome is not considered at this point. There is no indication for ischemic workup at this point. Atypical chest pain Chronic respiratory failure on home oxygen COPD exacerbation Seizure disorder Hypertension Hypothyroidism Cerebral palsy Diabetes mellitus Dementia Diastolic heart failure, chronic Cardiac suggestion for management: Managed on telemetry Follow-up electrolytes and kidney function tests and correct abnormalities No indication for any ischemic workup at this point Evaluation and management of respiratory failure as per primary team/Pulmonary Further evaluation and management depends on the above and clinical course Cardiac arreola, can be followed as outpatient A total of 55 minutes was spent reviewing the patient record, examining the patient, making a diagnostic and therapeutic plan, discussing this plan with medical personnel, following up on diagnostic studies and following the patient for clinical stability excluding any and all procedures. At least 50% of this time was spent in direct, [id number] contact. Thank you for allowing me to participate in this patient's care. Further recommendations will depend on patient's clinical course. Please do not hesitate to contact me if you have any questions or concerns. This medical document was created using electronic medical record system with [employer] computerized dictation system. Although this document has been carefully reviewed, there may still be some phonetic and typographical errors. These areas are purely typographical due to the imperfection of the software programs, and do not reflect any compromise in the patient's medical care. Plan discussed with: Other (nurse) NOVA CARRASCO MD July 24, 2024 06:35
--- NOTE | 2024-07-24 09:22 | DVHDS2 ---
Discharge Summary Date of Admission July 20, 2024 at 11:24 Date of Discharge: July 24, 2024 Labs/Diagnostic Data: Laboratory Results Test 07/24/24 06:13 07/22/24 05:21 07/21/24 20:12 07/21/24 20:10 POC Glucose 107 mg/dl (70-106) White Blood Count 7.3 10^3/uL (4.4-10.8) Red Blood Count 4.20 10^6/uL (4.0-5.20) Hemoglobin 13.3 g/dL (12.2-16.2) Hematocrit 39.9 % (36.0-46.0) Mean Corpuscular Volume 95.1 fL (80.0-100.0) Mean Corpuscular Hemoglobin 31.7 pg (28.0-32.0) Mean Corpuscular Hemoglobin Concent 33.3 g/dL (32.0-36.0) Red Cell Distribution Width 13.0 % (11.8-14.3) Platelet Count 208 10^3/uL (140-450) Mean Platelet Volume 6.4 fL (6.9-10.8) Neutrophils (%) (Auto) 60.2 % (37.0-80.0) Lymphocytes (%) (Auto) 31.1 % (10.0-50.0) Monocytes (%) (Auto) 6.0 % (0.0-12.0) Eosinophils (%) (Auto) 2.0 % (0.0-7.0) Basophils (%) (Auto) 0.7 % (0.0-2.0) Neutrophils # (Auto) 4.4 10 ^3/uL (1.6-8.6) Lymphocytes # (Auto) 2.3 10 ^3/uL (0.4-5.4) Monocytes # (Auto) 0.4 10 ^3/uL (0-1.3) Eosinophils # (Auto) 0.1 10 ^3/uL (0-0.8) Basophils # (Auto) 0 10 ^3/uL (0-0.2) Nucleated Red Blood Cells 0.2 % Sodium Level 141 mmol/L (136-145) Potassium Level 4.2 mmol/L (3.5-5.1) Chloride Level 105 mmol/L (98-107) Carbon Dioxide Level 28 mmol/L (20-31) Anion Gap 8 (5-15) Blood Urea Nitrogen 12 mg/dL (9-23) Creatinine 0.72 mg/dL (0.550-1.02) Glomerular Filtration Rate Calc 92 mL/min (>90) BUN/Creatinine Ratio 16.7 (10.0-20.0) Serum Glucose 112 mg/dL (74-106) Calcium Level 9.9 mg/dL (8.7-10.4) Magnesium Level 1.9 mg/dL (1.6-2.6) Triglycerides Level 139 mg/dL (< 150) Cholesterol Level 160 mg/dL (< 200) LDL Cholesterol 93 mg/dL (< 100) HDL Cholesterol 45 mg/dL (40-59) Thyroid Stimulating Hormone (TSH) 1.85 uIU/mL (0.55-4.78) Blood Gas Specimen Type Arterial Blood Gas Sample Site Left radial Blood Gas Patient Temperature 37.0 Arterial Blood Date Drawn [id number] Arterial Blood pH 7.437 (7.350-7.450) Arterial Blood Partial Pressure CO2 38.7 mmHg (32.0-45.0) Arterial Blood Partial Pressure O2 140.9 mmHg (83.0-108.0) Arterial Blood HCO3 25.5 mmol/L (21.0-28.0) Arterial Blood Oxygen Saturation 98.5 % (94.0-98.0) Arterial Blood Base Excess 1.4 mmol/L (-2.0-3.0) Arterial Blood Oxyhemoglobin 97.4 % (94.0-98.0) Arterial Blood Carboxyhemoglobin 0.8 % (0.5-1.5) Arterial Blood Methemoglobin 0.3 % (0.0-1.5) Mack Test Yes Blood Gas Total Hemoglobin 13.80 g/dL (12.0-16.0) Blood Gas Liter Flow 8.00 Blood Gas Modality Mask - simple Blood Gas Spontaneous Rate 20 FiO2 % 50.0 Total Bilirubin 0.5 mg/dL (0.2-1.0) Aspartate Amino Transferase (AST) 15 U/L (13-40) Alanine Aminotransferase (ALT) 20 U/L (7-40) Alkaline Phosphatase 98 U/L (46-116) Creatine Kinase 47 U/L (34-145) Troponin I High Sensitivity < 3 ng/L (</=34) Total Protein 7.6 g/dL (5.7-8.2) Albumin 4.9 g/dL (3.2-4.8) Test 07/20/24 08:05 07/19/24 00:13 Urine Color Colorless (Yellow) Urine Clarity Clear (Clear) Urine pH 6.5 (5.0-9.0) Urine Specific [place] 1.003 (1.001-1.035) Urine Protein Negative (Negative) Urine Ketones Negative (Negative) Urine Blood Negative /uL (Negative) Urine Nitrite Negative (Negative) Urine Bilirubin Negative (Negative) Urine Urobilinogen Normal mg/dL (Negative) Urine Leukocyte Esterase Negative /uL (Negative) Urine RBC 1 /hpf (0 - 4) Urine Microscopic WBC /HPF (0-5) Urine Squamous Epithelial Cells Few /hpf (<5) Urine Bacteria Few /hpf (None Seen) Urine Glucose Normal mg/dL (Normal) B-Type Natriuretic Peptide 36.83 pg/mL (0-100) Other Laboratory Tests 07/22/24 05:21 Brief Hx & Hospital Course: Cee Reina is a 69-year-old female with past medical history of hypertension, hypothyroidism, CHF, COPD, dementia, asthma, and diabetes, who came in due to right chest pain and shortness of breath. Patient resides at [facility], and states she is wheelchair bound at baseline. She wears oxygen at all times, but states the pain was causing her to feel short of breath despite the oxygen. Denies fever, nausea, or vomiting. While in the emergency department the patient was evaluated by the provider, As per provider: Labs, vital signs, and imagining monitored. Patient was admitted for chest pain. Patient was admitted for unstable angina. Patient was seen by cardiology. Troponin levels were negative. Acute coronary syndrome was ruled out. Patient had a chest x ray and CT of the chest done, which had no acute findings. Chest pain most likely related to coronary artery disease. Patient has underlying dementia and cerebral palsy. Patient also has epilepsy. She did experience one breakthrough seizure while in the hospital. Patient was restarted on all her home medications. Patient was cleared for discharge by cardiology and she will follow up with her PCP doctor Faiza in one week. There were no complaints or new complaints upon discharge, all questions and concerns were answered. Patient was advised to return to the ER or call 911 if any headaches, dizziness, shortness of breath, chest pain, bleeding, fevers, or worsening of medical condition. Patient/Family was counseled about treatment plan, medications, possible side effects, patientverbalized understanding. All questions were answered to the best of my ability. The patient symptoms improved and they are okay to be DC. Condition at Discharge: Stable Final Diagnosis/Problems List Chest pain-atypical, ACS ruled out CP Dementia Unstable angina COPD Hypothyroid DM2 with hyperglycemia Hx PHOTOLITHOGRAPHIC STRIPPER shunt Epilepsy Discharge Disposition: Care Home Facility Discharge Instruct/Medications Diet: Cardiac 2g Na,low cholest Activity: No Restrictions, As Tolerated Follow Up/Referral: pcp 1 week Discharge Statement: "Patient was advised to return to the ER or call 911 if any headaches, dizziness, shortness of breath, chest pain, abdominal pain, bleeding, fevers, or worsening of medical condition. Patient was counseled about treatment plan, medications, possible side effects, patientverbalized understanding. All questions were answered to the best of my ability. This discharge took greater then 30 minutes in planning, reviewing documentation, counseling the patient, and discussing with other team members." ASSESSMENT ASSESSMENT Assessment Chest pain-atypical, ACS ruled out CP Dementia Epilepsy FUNMILAYO JESUS NP July 24, 2024 09:22
== END 2024-07-24 18:50 | DRG 303 ==
LOC: EDBD 23:28 → ER 23:28 → OVERFLOW 07-20 11:24 → EAST 07-20 15:33 → TELE-EAST 07-21 21:08
PROVIDERS: ADMIT Nurse Practitioner; ATTEND Nurse Practitioner
DX: I25.110 Atherosclerotic heart disease of native coronary artery with unstable angina pectoris (principal); F03.94 Unspecified dementia, unspecified severity, with anxiety; J96.10 Chronic respiratory failure, unspecified whether with hypoxia or hypercapnia; I50.32 Chronic diastolic (congestive) heart failure; I31.39 Other pericardial effusion (noninflammatory); I11.0 Hypertensive heart disease with heart failure; E03.9 Hypothyroidism, unspecified; E11.65 Type 2 diabetes mellitus with hyperglycemia; G40.909 Epilepsy, unspecified, not intractable, without status epilepticus; G89.29 Other chronic pain; G80.9 Cerebral palsy, unspecified; Z88.8 Allergy status to other drugs, medicaments and biological substances; Z88.5 Allergy status to narcotic agent; Z88.6 Allergy status to analgesic agent; Z79.2 Long term (current) use of antibiotics; Z79.899 Other long term (current) drug therapy; Z79.84 Long term (current) use of oral hypoglycemic drugs; Z90.710 Acquired absence of both cervix and uterus; Z90.49 Acquired absence of other specified parts of digestive tract; Z99.81 Dependence on supplemental oxygen; Z99.3 Dependence on wheelchair; Z98.2 Presence of cerebrospinal fluid drainage device; Z87.891 Personal history of nicotine dependence; Z82.49 Family history of ischemic heart disease and other diseases of the circulatory system; J44.9 Chronic obstructive pulmonary disease, unspecified
CPT/HCPCS: 36415; 36600; 70450; 71045; 71250; 80048; 80053; 80061; 81001; 82550; 82805; 82962; 83735; 83880; 84443; 84484; 85025; 87081; 87086; 93005; 93306; 94640; 97110; 97163; 99291; G0378; J1815; J2405

== ENCOUNTER 2024-08-24 21:52 | Emergency (ER) | payer MEDICARE, MEDICAID ==
[~2024-08-24] VITALS: Ht 154.9 cm; Wt 90.9 kg
[~2024-08-24 21:52] MED LIST changes: +ATOR40TA52 PO; -CIPR-173 PO; -OXCA150T3 PO; +OXCA300T50 PO; +PRAM0.373 PO; -ROSU10TA16 PO; -TRAZ-181 PO; +ZOLP5TAB5 PO
[2024-08-24] MEDS: HYDROcodone-ACET 5/325MG TAB PO ONE (22:00)
--- NOTE | 2024-08-24 22:40 | ED.PDOC ---
History of Present Illness HPI Comments 69 y/o morbidly obese F is BIBA for c/o left neck and right knee pain s/p mechanical fall and injury. Patient is a resident of [facility]. Patient is reported by staff to suffered an unwitnessed fall, this evening, when attempting to adjust her oxygen on her own by leaning on the edge of her bed. Neck and knee pain is a 9 and a 10/10 in severity, respectively. No lost of consciousness or head injury or blood thinner use reported. Vital stable and within normal limits. Patient has a significant history, which includes cerebral palsy w/right sided deficits, CHF, COPD, DM, HLD, and HTN. Patient denies any further injuries, dizziness, headache, or furt her associated symptoms. 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 Past Medical History PAST MEDICAL HISTORY: Anxiety, CHF, COPD, Dementia, Depression, DM (type II), GERD, High Lipids, HTN, Schizophrenia, Seizures, Thyroid (hypothyroidism ), UTI'S Past Medical History (Other): cerebral palsy with right sided deficits spinal stenosis morbid obesity Parkinson's disease osteoporosis restless leg syndrome acute ischemic heart disease chronic pain syndrome atheroscleotic heart disease umbilical hernia Surgical History: Denies all surgeries SHIPMASTER History: Denies all SHIPMASTER Hx Social History Smoker: Non-Smoker Alcohol: Denies ETOH Use Drugs: Denies Drug Use Lives In: [facility] All Other Systems: Reviewed and Negative (Comprehensive review of systems are negative unless otherwise stated in HPI) Physical Exam General Appearance: No Apparent Distress, Obese HEENT: Normal ENT Inspection, Pharynx Normal, TMs Normal Neck: Full Range of Motion, Non-Tender, Normal, Normal Inspection Respiratory: Chest Non-Tender, Lungs Clear, No Accessory Muscle Use, No Respiratory Distress, Normal Breath Sounds Cardiovascular: No Edema, No JVD, No Murmur, No Gallop, Normal Peripheral Pulses, Regular Rate/Rhythm Breast Exam: Deferred Gastrointestinal: No Organomegaly, Non Tender, No Pulsatile Mass, Normal Bowel Sounds, Soft Genitalia: Deferred Pelvic: Deferred Rectal: Deferred Extremities: No calf tenderness, Normal capillary refill, Normal inspection, Normal range of motion, Non-tender, No pedal edema Musculoskeletal : Apperance: Normal Neurologic: Alert, 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 Was a procedure done?: No Differential Dx Considerations may include: fractures, sprain, contusions, dislocation, among others X-Ray, Labs, Meds, VS Vital Signs Date Time Temp Pulse Resp B/P (MAP) Pulse Ox O2 Delivery O2 Flow Rate FiO2 08/24/24 22:10 98.7 103 20 144/91 (108) 98 98.7 [place] [address] Ph: [phone] DIAGNOSTIC IMAGING Diagnostic Imaging Report : [id number] Signed PATIENT: ANTONIO CASILLAS ACCT: [id number] UNIT: [id number] : 1955 LOC: ER ROOM / BED: / AGE / SEX: 69 / F ADM STATUS: REG ER SERVICE 2336 ORDERING PHYSICIAN: ABHI SON MD PROCEDURE(s): HWOCT - HEAD WITHOUT CONTRAST REASON: FALL ORDER NUMBER(s): [id number], ACCESSION NUMBER(s): [id number] EXAM: CT HEAD WITHOUT CONTRAST INDICATION: FALL TECHNIQUE: CT of the head without intravenous contrast. Radiation Dose : 1. Head: CT Dose: CTDI volume is 53.99 mGy. Dose-length product is 1352.23 mGy*cm The dose indicators for CT are the volume Computed Tomography (CT) Dose Index (CTDIvol) and the Dose Length Product (DLP), and are measured in units of mGy and mGy-cm, respectively. These indicators are not patient dose, but values generated from the CT scanner acquisition factors. The report includes radiation exposure data for exposures received during this examination. COMPARISON: None FINDINGS: There is no evidence of acute intracranial hemorrhage, extra-axial collection, mass effect, midline shift, herniation or hydrocephalus. The ventricles, sulci and cisterns are age appropriate. The ulloa-white differentiation is intact. Patchy periventricular and subcortical white matter hypoattenuation is nonspecific but may be related to small vessel ischemic disease. The visualized paranasal sinuses and mastoid air cells are clear. The surrounding soft tissues and osseous structures are unremarkable. IMPRESSION: 1. No acute intracranial abnormality. Radiation optimization: All CT scans at this facility use at least one of these dose optimization techniques: automated exposure control mA and/or kV adjustment per patient size (includes targeted exams where dose is matched to clinical indication) or iterative reconstruction. ATED BY: ISMAEL JALLOH MD DICTATED DATE/TIME: 08/25/244 SIGNED BY: ISMAEL JALLOH MD SIGNED DATE/TIME: 08/25/244 CC: [place] [id number] Ph: [phone] DIAGNOSTIC IMAGING Diagnostic Imaging Report : [id number] Signed PATIENT: ANTONIO CASILLAS ACCT: [id number] UNIT: [id number] : 1955 LOC: ER ROOM / BED: / AGE / SEX: 69 / F ADM STATUS: REG ER SERVICE 2336 ORDERING PHYSICIAN: ABHI SON MD PROCEDURE(s): CS2 - CERVICAL WITHOUT CONTRAST REASON: FALL ORDER NUMBER(s): [id number], ACCESSION NUMBER(s): [id number] EXAM: CT CERVICAL WITHOUT CONTRAST HISTORY: FALL COMPARISON: None CTDIvol mGy, DLP mGy*cm. TECHNIQUE: Multiple axial CT images of the spine were obtained using bone algorithm. Axial and coronal reformatting was done. Bone and soft tissue windows were reviewed. FINDINGS: No prevertebral soft tissue abnormality noted. Straightening of the normal cervical lordosis. No listhesis. The cervical vertebral bodies appear unremarkable with no evidence of fracture or dislocation. Paraspinal soft tissues appear unremarkable. Multilevel cervical spondylosis without significant spinal canal stenosis. IMPRESSION: No evidence of cervical spine fracture or dislocation. ATED BY: DAVE JAMES MD DICTATED DATE/TIME: 08/25/2450 SIGNED BY: DAVE JAMES MD SIGNED DATE/TIME: 08/25/2450 CC: [place] [id number] Ph: [phone] DIAGNOSTIC IMAGING Diagnostic Imaging Report : [id number] Signed PATIENT: ANTONIO CASILLAS ACCT: [id number] UNIT: [id number] : 1955 LOC: ER ROOM / BED: / AGE / SEX: 69 / F ADM STATUS: REG ER SERVICE 05 ORDERING PHYSICIAN: ABHI SON MD PROCEDURE(s): RKN3 - R KNEE 3V XRAY REASON: fall ORDER NUMBER(s): [id number], ACCESSION NUMBER(s): [id number] CLINICAL INDICATION: fall TECHNIQUE: XY R KNEE 3V XRAY Comparison: None FINDINGS/IMPRESSION: : There is no evidence of acute fracture or dislocation. Hardware within the proximal tibia without evidence of complication. Soft tissues are unremarkable. ATED BY: ISMAEL JALLOH MD DICTATED DATE/TIME: 08/24/242349 SIGNED BY: ISMAEL JALLOH MD SIGNED DATE/TIME: 08/24/242349 CC: [place] [id number] Ph: [phone] DIAGNOSTIC IMAGING Diagnostic Imaging Report : [id number] Signed PATIENT: ANTONIO CASILLAS ACCT: [id number] UNIT: [id number] : 1955 LOC: ER ROOM / BED: / AGE / SEX: 69 / F ADM STATUS: REG ER SERVICE 05 ORDERING PHYSICIAN: ABHI SON MD PROCEDURE(s): CERV2 - CERVICAL SPINE 3V REASON: fall ORDER NUMBER(s): [id number], ACCESSION NUMBER(s): [id number] INDICATION: fall TECHNIQUE: AP, lateral and odontoid radiographs of the cervical spine. COMPARISON: None FINDINGS / IMPRESSION: Suboptimal study. On the lateral radiograph, there is adequate localization down to C3-C4 only with no significant abnormality noted at these levels. No significant abnormality is seen on the AP radiograph. Odontoid appears unremarkable. Cervical spondylosis. ATED BY: DAVE JAMES MD DICTATED DATE/TIME: 08/25/2428 SIGNED BY: DAVE JAMES MD SIGNED DATE/TIME: 08/25/2428 CC: Time of 1ST Reevaluation: 22:30 Reevaluation 1ST: Unchanged Patient Education/Counseling: Diagnosis, Treatment Family Education/Counseling: No Family Present SEPSIS Sepsis Screen Physician Orders R Knee 3v Xray (08/24/24 22:06) Cervical Spine 3v (08/24/24 22:06) Head Without Contrast (08/24/24 23:36) Cervical Without Contrast (08/24/24 23:36) Vital Signs Date Time Temp Pulse Resp B/P (MAP) Pulse Ox O2 Delivery O2 Flow Rate FiO2 08/24/24 22:10 98.7 103 20 144/91 (108) 98 98.7 Departure 1 Departure Time of Disposition: 01:28 (Patients imaging is benign will discharge home.) Impression: Primary Impression: Fall Qualified Codes: W19.XXXA - Unspecified fall, initial encounter Additional Impressions: Cervical strain Qualified Codes: S16.1XXA - Strain of muscle, fascia and tendon at neck level, initial encounter Right knee pain Qualified Codes: M25.561 - Pain in right knee Disposition: 01 HOME / SELF CARE / HOMELESS Condition: Stable Additional Instructions: Fortunately your images today were benign and you did not break anything. You need to take tylenol and motrin as needed for pain. You should follow up with your regular doctor this week to ensure you are doing better. Discharged With: Self Critical Care Note Critical Care Time?: No Stability Stability form required: No Heart Score Heart Score: Heart Score Response (Comments) Value History N/A 0 EKG N/A 0 Age N/A 0 Risk Factors N/A 0 Troponin N/A 0 Total 0 I personally scribed for ABHI SON MD ([email or web address]) on 08/24/24 at 22:40. Electronically submitted by Ryan Vasquez ([email or web address]). I personally scribed for ABHI SON MD ([email or web address]) on 08/25/24 at 01:05. Electronically submitted by Ryan Vasquez ([email or web address]). ABHI SON MD Aug 24, 2024 22:40
--- NOTE | 2024-08-24 23:52 | DVH ---
CLINICAL INDICATION: fall TECHNIQUE: XY R KNEE 3V XRAY Comparison: None FINDINGS/IMPRESSION: : There is no evidence of acute fracture or dislocation. Hardware within the proximal tibia without evidence of complication. Soft tissues are unremarkable.
--- NOTE | 2024-08-25 00:07 | DVH ---
EXAM: CT HEAD WITHOUT CONTRAST INDICATION: FALL TECHNIQUE: CT of the head without intravenous contrast. Radiation Dose : 1. Head: CT Dose: CTDI volume is 53.99 mGy. Dose-length product is 1352.23 mGy*cm The dose indicators for CT are the volume Computed Tomography (CT) Dose Index (CTDIvol) and the Dose Length Product (DLP), and are measured in units of mGy and mGy-cm, respectively. These indicators are not patient dose, but values generated from the CT scanner acquisition factors. The report includes radiation exposure data for exposures received during this examination. COMPARISON: None FINDINGS: There is no evidence of acute intracranial hemorrhage, extra-axial collection, mass effect, midline s hift, herniation or hydrocephalus. The ventricles, sulci and cisterns are age appropriate. The ulloa-white differentiation is intact. Patchy periventricular and subcortical white matter hypoattenuation is nonspecific but may be related to small vessel ischemic disease. The visualized paranasal sinuses and mastoid air cells are clear. The surrounding soft tissues and osseous structures are unremarkable. IMPRESSION: 1. No acute intracranial abnormality. Radiation optimization: All CT scans at this facility use at least one of these dose optimization luis hniques: automated exposure control mA and/or kV adjustment per patient size (includes targeted exam s where dose is matched to clinical indication) or iterative reconstruction.
--- NOTE | 2024-08-25 00:32 | DVH ---
INDICATION: fall TECHNIQUE: AP, lateral and odontoid radiographs of the cervical spine. COMPARISON: None FINDINGS / IMPRESSION: Suboptimal study. On the lateral radiograph, there is adequate localization down to C3-C4 only with n o significant abnormality noted at these levels. No significant abnormality is seen on the AP radiogr aph. Odontoid appears unremarkable. Cervical spondylosis.
--- NOTE | 2024-08-25 00:54 | DVH ---
EXAM: CT CERVICAL WITHOUT CONTRAST HISTORY: FALL COMPARISON: None CTDIvol mGy, DLP mGy*cm. TECHNIQUE: Multiple axial CT images of the spine were obtained using bone algorithm. Axial and coron al reformatting was done. Bone and soft tissue windows were reviewed. FINDINGS: No prevertebral soft tissue abnormality noted. Straightening of the normal cervical lordosis. No list hesis. The cervical vertebral bodies appear unremarkable with no evidence of fracture or dislocation. Paraspinal soft tissues appear unremarkable. Multilevel cervical spondylosis without significant spi nal canal stenosis. IMPRESSION: No evidence of cervical spine fracture or dislocation.
[2024-08-25] MEDS: MIDAZOLAM HCL 5 MG/ML-1ML VIAL IM ONE (03:08)
[2024-08-25 04:16] VITALS: PULSE 109; RESP 16; O2SAT 96
[2024-08-25 07:40] VITALS: RESP 16; O2SAT 96
[2024-08-25 11:46] VITALS: PULSE 88; RESP 16; O2SAT 99
[2024-08-25] MEDS: MORPHINE SULFATE INJ 2 MG/ml SYRG IV ONE (12:49)
[2024-08-25] MEDS: levETIRAcetam 500 mg/100ml 100 ML IV ONE (17:40)
[2024-08-25] MEDS: LORazepam 2MG/ML-1ML VIAL IV ONE (17:43)
[2024-08-25 19:40] VITALS: BP 133/70; PULSE 89; RESP 22; TEMP 98.7; O2SAT 95
== END 2024-08-25 20:00 | disposition home or self-care (01) ==
LOC: EDBD 21:52 → ER 21:52 → EDUNIT# 21:52 → ER 08-25 20:00
DX: S16.1XXA Strain of muscle, fascia and tendon at neck level, initial encounter (principal); M25.561 Pain in right knee; I11.0 Hypertensive heart disease with heart failure; I50.9 Heart failure, unspecified; E03.9 Hypothyroidism, unspecified; E11.9 Type 2 diabetes mellitus without complications; E78.5 Hyperlipidemia, unspecified; F03.90 Unspecified dementia, unspecified severity, without behavioral disturbance, psychotic disturbance, mood disturbance, and anxiety; F20.9 Schizophrenia, unspecified; J44.9 Chronic obstructive pulmonary disease, unspecified; Z87.440 Personal history of urinary (tract) infections; W18.39XA Other fall on same level, initial encounter; Y93.89 Activity, other specified; Y92.89 Other specified places as the place of occurrence of the external cause; Y99.9 Unspecified external cause status
CPT/HCPCS: 70450; 72040; 72125; 73562; 82947; 96372; 96374; 96375; 99285; J1953; J2060; J2250; J2270